=== PATIENT | female | born 1975 | race Caucasian/White ===

== ENCOUNTER 2024-01-03 10:30 | Outpatient (CLI) | payer SELFPAY | END 2024-01-03 10:31 | disposition home or self-care (01) | PROVIDERS: PCP Family Medicine; Visit Provider Family Medicine | DX: Z01.818 Encounter for other preprocedural examination (principal); C43.72 Malignant melanoma of left lower limb, including hip | CPT/HCPCS: 80048; 80076; 84443; 85025 ==

== ENCOUNTER 2024-01-10 06:30 | Day surgery (SDC) | payer SELFPAY ==
[2024-01-10] VITALS (53 sets, daily range): BP systolic 69–112; BP diastolic 43–91; PULSE 48–118; RESP 12–20; TEMP 36.3–36.6; O2SAT 92–100; BMI 16.0
--- OUTSIDE RECORDS SUMMARY | 2024-01-10 06:33 | XMS_ITS | Clinical Summary ---
Author Organization [employer] [facility] [employer] Address [place], [place] [address] Care Team Providers Care Director Digital Catalogue Name Role Phone Hadley James MD Primary Care Provider + Allergies Active Allergy Reactions Criticality Noted Date Comments Blood-Group Specific Substance Other - Describe In Comment Field 03/27/2013 Patient has a probable Passive Anti-D. Blood product orders may be delayed. Draw 2 purple and 1 red top tubes for all Type/Screen/Crossmat ch orders. Medications Medication Sig Dispensed Refills Start Date End Date Status sertraline (ZOLOFT) 100 mg tabletIndications:Sev ere episode of recurrent major depressive disorder, without psychotic features (HC) Take 2 tablets by mouth once daily. 60 tablet 09/05/2017 Active buPROPion (WELLBUTRIN XL) 300 mg Extended-Release tabletIndications:Sev ere episode of recurrent major depressive disorder, without psychotic features (HC) TAKE 1 TABLET BY MOUTH ONCE DAILY 30 tablet 09/05/2017 Active Active Problems Problem Noted Date Diagnosed Date Anorexia nervosa 06/22/2006 Major depressive disorder, recurrent episode, mo derate 06/22/2006 Overview (09/20/2018): patient continues to follow with Dr. James in [place]. Tayler Lange is not managing the medications. Cervical Dysplasia 06/22/2006 Resolved Problems Problem Noted Date Diagnosed Date Resolved Date Spontaneous vaginal delivery 09/05/2013 10/07/2014 Supervision of other normal 01/26/2013 10/07/2014 Overview (07/03/2013): Planned Smoker Depression and Anxiety well controlled with Wellbutrin and Zoloft. Having a Girl - Kaelyn Mesa Encounters Date Type Department Care Team Description 12/04/[address] [place] [address] Hadley James MD Results (Provider FYI) 11/28/2023 Lab Requisition [facility] [phone] Hadley James MD from Last 3 Months Immunizations Name Administration Dates Next Due Td (Age >=7 Years) 12/29/2002 Tdap 07/25/2012 Tuberculin (PPD) 02/15/2007 Family History Medical History Relation Name Comments Blood Disease Maternal Grandfather Leukem ia Thyroid Disease Mother Relation Name Status Comments Maternal Grandfather Mother Social History Tobacco Use Types Packs/Day Years Used Date Smoking Tobacco: Every Day Cigarettes 0.5 7 Smokeless Tobacco: Never Tobacco Cessation:Ready to Q uit: No Alcohol Use Standard Drinks/Week Comments Yes 0 (1 standard drink = 0.6 oz pur e alcohol) Social PHQ-2 Answer Date Recorded PHQ-2 Score 4 05/13/2018 Sex and Gender Information Value Date Recorded Sex Assigned at Not on file Gender Identity Not on file Sexual Orientation Not on file Obstetrics History Para Term AB IAB SAB Ectopic Multiple Livin g Live Births 5 3 3 0 0 0 0 0 3 3 Date Outcome GA Total Labor Labor/2nd/3rd Weight Sex Type Anes PTL Cecelia A1 A5 Name Clin Term Term 2000 39w 0d 2.81 kg (6 lb 3 oz) F Vag Livin g Angie a Delivery Location:[place] 2002 40w 0d 3.6 kg (7 lb 15 oz) M Vag IV Meds Livin g 9 9 Goyo [facility] re Delivery Location:[facility] 2013 Term 39w 5d 3.2 kg (7 lb 1 oz) F Vag Livin g 9 9 PATE ,BG(AN JOSE) Delivery Location:[facility] Last Filed Vital Signs Vital Sign Reading Time Taken Comments Blood Pressure 142/100 06/15/2017 11:10 AM CDT Pulse 78 06/15/2017 11:10 AM CDT Temperature 36.8 ??C (98.2 ??F) 09/06/2013 7:45 AM CD T Respiratory Rate 18 09/06/2013 7:45 AM CDT Oxygen Saturation 97% 09/05/2013 6:45 AM CDT Inhaled Oxygen Concentration - - Weight 59.4 kg (131 lb) 06/15/2017 11:10 AM CDT Height 182.9 cm (6') 06/15/2017 11:10 AM CDT Body Mass Index 17.77 06/15/2017 11:10 AM CDT Plan of Treatment Health Maintenance Due Date Last Done Comments Pap test for age 21-65 10/07/2017 5, 03/26/2013, 03/21/2011, Additional history exists BMI (ht and wt on same day) for age 18+ 06/15/2018 06/15/2017 Depression screening for age 12+ 06/15/2018 06/15/2017 Colonoscopy through age 75 2020 Lipids for age 45-75 2020 Mammogram for age 45-75 2020 Tetanus booster 07/25/2022 07/25/2012, 12/29/2002 COVID-19 vaccine series ( season) 2023 Influenza for age 9-49 11/11/2023 Hepatitis C screening for age 18-79 Completed 06/01/2005 Tdap Completed 07/25/2012 HIV for age 15-65 Completed 03/26/2013 Pneumococcal series for age 6-64 Aged Out No longer eligible based on patient's age to complete this topic Procedures Procedure Name Priority Date/Time Associated Diagnosis Comments LAB TRACKING EVENT Routine 11/28/2023 10 :00 AM CDT PATH TISSUE EXAM Routine 11/28/2023 10:0 0 AM CDT MANAGER ICU THIN PREP PAP SCREEN IMAGED Routine 10/07/2014 11:00 AM CDT Screening for malignant neoplasm of the cervix ANTI HIV 1/2 Routine 03/26/2013 11:29 AM TICKET COUNTER Supervision of other normal ANTI HCV Timed 06/01/2005 4:25 PM TICKET COUNTER from Last 3 Months or Most Recently Relevant to Health Maintenance Results * LAB TRACKING EVENT (11/28/2023 10:00 AM CDT) Other (Other) Client Collect / Unknown 11/28/2023 10:00 AM CDT 11/28/2023 10:28 PM CDT Hadley James MD LAB BILL ONLY [facility] LABORAT[facility]-CENTRAL LABORATORY [address] [place] [address], [place] * PATH TISSUE EXAM (11/28/2023 10:00 AM CDT) Case Report Pathology Report ?Case: [id number] ? Authorizing Provider: ??Hadley James MD ??Collected: ? 11/28/2023 1000 ? Ordering Location: ? [facility] ?Received: ?11/29/2023 0952 ? Pathologist: ? Justine Gordon MD ? Specimens: ?? A) - Left Thigh ? B) - Left Thigh ? 12/04/2023 12:39 PM CDT [facility] EN[facility]AL LABORAT[facility] Final Diagnosis A) SKIN, LEFT THIGH, BIOPSY: 1. Malignant melanoma ?? a. Maximum depth of invasion: 1.5 mm ?? b. Ulceration: Not identified ?? c. Margins: Peripheral: Positive; Deep: Negative 2. See comment and staging parameters below B) SKIN, LEFT THIGH, BIOPSY: 1. Malignant melanoma ?? a. Maximum depth of invasion: At least 2.5 mm ?? b. Ulceration: Not identified ?? c. Margins: Peripheral: Positive; Deep: Positive 2. See comment and staging parameters below 12/04/2023 12:39 PM CDT [facility]- ENTRAL LABORATORY Comment A&B) Re-excision to obtain 2.0 cm negative margins and consideration of sentinel lymph node biopsy is recommended. Dr. Gordon has left a message with this result to for Hadley James MD on 12/04/2023. Dr. Sharita Faria and has reviewed this case and concurs with diagnosis. 12/04/2023 12:39 PM CDT [facility] Clinical Information Nevus left thigh raised on part and dark on other part. 12/04/2023 12:39 PM T [facility] ENTRAL LABORAT[facility] Gross Description A) Received in formalin, labeled with the patient's name and A, dark, is a 0.4 x 0.4 x 0.4 cm cylindrical portion of hammer skin predominantly covered by 0.3 x 0.3 cm brown macule extending to 1 skin edge. ??The margin is inked yellow, the tissue is bisected and entirely submitted in 1 cassette. B) Received in formalin, labeled with the patient's name and B, is a 0.4 x 0.4 x 0.2 cm reno, hammer mottled discoid portion of skin. ??The margin is inked green, the tissue is bisected and entirely submitted in 1 cassette. DPL 11/29/2023 12/04/2023 12:39 PM CDT [facility] LAB[facility] Microscopic Description The final diagnosis is based on microscopic examination of appropriate sections of all specimens. A) the presence of yellow ink is confirmed on tissue sections. B) the presence of green ink is confirmed on tissue sections. 12/04/2023 12:39 PM CDT [facility]-C ENTRNC LABORATORY SYNOPTIC REPORTING MELANOMA OF THE SKIN: Excision, Re-Excision MELANOMA OF THE SKIN: EXCISION, RE-EXCISION ??- A, B 8th Edition - Protocol posted: 01/19/2021 SPECIMEN ?? Procedure: ?Punch biopsies (x 2) ?? Specimen Laterality: ?Left TUMOR ?? Tumor Site: ?Skin of lower limb and hip: Thigh ?? Histologic Type: ?Superficial spreading melanoma (low-cumulative sun damage (CSD) melanoma) ?? Maximum Tumor (Breslow) Thickness (Millimeters): ?2.5 mm ?? Macroscopic Satellite Nodule(s): ?Not identified ?? Ulceration: ?Not identified ?? Anatomic (Hussein) Level: ?IV (Melanoma invades reticular dermis) ?? Mitotic Rate: ?2 mitoses per mm2 ?? Microsatellite(s) : ?Not identified ?? Lymphovascular Invasion: ?Not identified ?? Neurotropism: ?Not identified ?? Tumor-Infiltratin g Lymphocytes: ?Present, nonbrisk ?? Tumor Regression: ?Present, involving less than 75% of lesion ?? MARGINS: ? Margin Status for Invasive Melanoma: ?Invasive melanoma present at margin ? Margin(s) Involved by Invasive Melanoma: ?Peripheral ? Margin(s) Involved by Invasive Melanoma: ?Deep ? Margin Status for Melanoma in situ: ?Melanoma in situ present at margin ? Margin(s) Involved by Melanoma in Situ: ?Peripheral ?? REGIONAL LYMPH NODES: ? Regional Lymph Node Status: ?Not applicable (no regional lymph nodes submitted or found) ?? PATHOLOGIC STAGE CLASSIFICATION (pTNM, AJCC 8th Edition): ? pT Category: ?pT3a ? pN Category: ?pN not assigned (no nodes submitted or found) 12/04/2023 12:39 PM CDT [facility]AL LABORATORY Additional Information [facility] at [facility] - [address], [place] [address] 12/04/2023 12:39 PM CDT [facility] [employer] [facility]- ENTRAL LABORATORY Other (Left Thigh) 11/28/2023 10:00 AM CDT 11/29/2023 9:52 AM CDT Specimen (specimen) (Left Thigh) 11/28/2023 10:00 AM CDT 11/29/2023 9:52 AM CDT Hadley James MD PATHOLOGY/CYTOLO GY [facility] [employer] [facility] [address] [place] [address], * MANAGER ICU THIN PREP PAP SCREEN IMAGED (10/07/2014 11:00 AM CDT) MANAGER ICU CYTOLOGY See Anatomic Pathology case 10/12/2014 12:00 PM CDT [facility] [employer] [facility] TRAL LABORATORY Specimen (specimen) (Cervical/Vagina l) Non-Blood / Unknown 10/07/2014 11:00 AM CDT 10/07/2014 11:00 AM CDT Hadley James MD PATHOLOG[facility] [address] [place] [address], * ANTI HIV 1/2 (03/26/2013 11:29 AM TICKET COUNTER) ANTI HIV 1/2 Non-reacti ve [facility] Blood specimen (specimen) BLOOD SPECIMEN / Unknown 03/26/2013 11:29 AM TICKET COUNTER 03/26/2013 11:21 AM TICKET COUNTER Hadley James MD SEND OUTS [facility] LABORATORY INTERNAL ZIP [address] [place] [address] * ANTI HCV (06/01/2005 4:25 PM TICKET COUNTER) ANTI HCV Non-reactiv e [facility] 06/01/2005 4:25 PM TICKET COUNTER 06/02/2005 1:42 PM TICKET COUNTER Narrative [facility] - 06/07/2005 1:54 PM TICKET COUNTER Testing Performed By [place], [place] Hadley James MD SEND OUTS [facility] [address] [place] [address] from Last 3 Months or Most Recently Relevant to Health Maintenance Advance Directives * Full Code (Latest Code Status on File) Date Activated Date Inactivated Comments 09/05/2013 3:53 AM 09/06/2013 5:20 PM * Full Code Date Activated Date Inactivated Comments 08/29/2013 2:34 PM 08/29/2013 9:53 PM Care Teams Director Digital Catalogue Relationship Specialty Start Date End Date Hadley James MD [address] [place] [address] [phone] (work) PCP - General 03/06/06
[2024-01-10 07:08] LABS: Ur HCG Qualitative* Negative (Negative)
[2024-01-10] MEDS: SODIUM CHLORIDE 0.9 % (FLUSH) 10 ML SYRINGE IVF (07:48)
--- NOTE | 2024-01-10 10:09 | W.PM.H&PU ---
History & Physical Update History & Physical Update H&P Reviewed and patient assessed: No changes noted
[2024-01-10] MEDS: ISOSULFAN BLUE 5 ML VIAL INJECTION (10:42)
[2024-01-10] MEDS: BUPIVACAINE 0.25% 30 ML INJECTION (11:08)
[2024-01-10] MEDS: BACITRACIN OINTMENT BULK TUBE 1 APPLIC TOPICAL (12:29)
--- NOTE | 2024-01-10 13:06 | W.ANESCHARGE ---
Anesthesia Charges Start Date/Time Anesthesia Start Date: 01/10/24 Anesthesia Start Time: 10:22 Stop Date/Time Anesthesia Stop Date: 01/10/24 Anesthesia Stop Time: 12:52
[2024-01-10] MEDS: PHENYLEPHRINE 100 MCG/ML SYRINGE IVP ×7 (13:08→14:10)
--- NOTE | 2024-01-10 13:17 | W.ANESCHARGE ---
Anesthesia Charges Start Date/Time Anesthesia Start Date: 01/10/24 Anesthesia Start Time: 10:22 Stop Date/Time Anesthesia Stop Date: 01/10/24 Anesthesia Stop Time: 12:52
--- NOTE | 2024-01-10 13:18 | PM.EN ---
Chart Event Note Time Seen by Provider: 13:18 Date Seen: 01/10/24 Chart Event Note: approximately 5-10 minutes after lymphazurin injection, severe hypotension ensued that was unresponsive to pressors. ephedrine, phenylephrine, vasopressin, epi 10 mcg/ml, than epi 100mcg/ml. Assuming anaphylaxis, steroids given, litres of fluid. MDA present and surgeon aware. No bronchospasm. Waking patient up. Patient responding to stimulation, b/p stabilizing, surgeon wanting to quickly finish case if patient stable since it is [place]. Patient maintaining b/p without pressors and tolerating nitrous oxide and whiff of sevo. Extubated awake at end of case. Following commands and moving all extremities, talking. Sending to PAR to see if she remains hemodynamically stable and able to go to floor or needing to be transferred. [place]
--- NOTE | 2024-01-10 13:19 | SUR.PHASEI ---
vasopressin given per distribution center manager at [phone]
--- NOTE | 2024-01-10 13:19 | SUR.PHASEI ---
see anesthesia record for vasopressin
[2024-01-10 13:44] LABS: Basophils Percent Auto 0.1 % (0.0-3.0); Eosinophils Percent Auto 0.1 % (0.0-7.0); Hematocrit 41.9 % (33.0-51.0); Hemoglobin* 14.7 gm/dL (12.0-16.0); Immature Granulocytes Pct Auto 0.8 %; Lymphocytes Percent Auto 7.4 % (20-44); Mean Corpuscular HGB Conc 35 gm/dL (32-36); Mean Corpuscular Hemoglobin 34 pg (26-34); Mean Corpuscular Volume 98 fL (80-100); Monocytes Percent Auto 5.5 % (0.0-11.0); Neutrophils Percent Auto 86.1 % (42.0-72.0); Platelet Count* 182 K/uL (140-440); RDW Coefficient of Variation % 12.4 % (11.5-15.5); Red Blood Count 4.29 m/uL (4.00-5.20); White Blood Count* 21.66 K/uL (4.50-11.00)
[2024-01-10 13:57] LABS: Slide Review Reflex No
[2024-01-10 14:04] LABS: Chloride* 91 mmol/L (96-114); Potassium* 3.7 mmol/L (3.6-5.1); Sodium* 126 mmol/L (135-149)
[2024-01-10] MEDS: 0.9 % SODIUM CHLORIDE 500 ML 500 ML IV ×2 (14:04→15:13)
[2024-01-10 14:07] LABS: Anion Gap 4 mEq/L (7-15); Blood Urea Nitrogen* 11 mg/dL (5-24); Carbon Dioxide* 31 mmol/L (20-32); Creatinine* 0.8 mg/dL (0.5-1.5); Est. Creatinine Clearance* 72.67; Estimated Glomerular Filt Rate 91 ml/min; Glucose* 137 mg/dL (60-115)
[2024-01-10 14:08] LABS: Calcium* 8.5 mg/dL (8.4-10.6)
[2024-01-10 14:21] LABS: Troponin I* < 0.01 ng/mL (0.01-0.04)
--- NOTE | 2024-01-10 14:48 | P.GSOP_ITS ---
Operative Note Date of procedure: 01/10/24 Pre-op diagnosis: Left thigh malignant melanoma, 1.8 x 2.2 cm in diameter at least 2.5 mm in depth Post-op diagnosis: Same Type of Procedure: 1. Wide local excision left thigh malignant melanoma 2. Left femoral sentinel lymph node biopsy Indications: The patient is a 48-year-old female who presented to clinic with a large changing mole on her left thigh. This was biopsied and found to be malignant melanoma. The maximum depth was noted to be at least 2.5 mm. Given this finding I recommended wide excision with 2 cm margins as well as sentinel lymph node biopsy. We discussed that given the large area of excision that she may require a skin graft to close the wound. She agreed to proceed. Procedure Description: After discussing the risks and benefits of the procedure, the patient signed informed consent.? The operative site was marked and the patient was brought to the operating room and placed on the operating table in supine position.? Care was taken to pad the patient's pressure points.?? The patient was then intubated/given sedation by anesthesia.??Preoperatively lymphoscintigraphy was performed to identify and localize a sentinel lymph node in the left groin. This clinically corresponded to the left femoral region. I then injected 3 mL of Isosulfan blue dye within the dermis around the lesion. This was massaged for 3 minutes. The operative site was then prepped and draped in the usual sterile fashion.? A time-out was then performed. I began by bringing the probe into the field and was able to identify a signal just slightly above the marked area on the skin. A skin incision was then created and dissection was taken down through the subcutaneous tissue. A blue channel was noted in the subcutaneous. The femoral fascia was incised and a blue node was identified. This was dissected out carefully from the surrounding fat. The lymphatics were clipped. This had a strong signal ex vivo of 1500. The probe was placed back into the wound. There was still a signal noted that was greater than 10%. I followed a blue lymphatic channel was able to identify an additional node. This had a signal with the probe. This node appeared to either be 2 nodes close together or a bilobed node. This was removed. It was measured ex vivo and had a strong signal. The probe was then placed into the wound there were no further nodes noted. At this time, anesthesia had noted the patient's blood pressure was very low. It was not responding to vasopressors. The patient did not have high airway pressures. Oxygen saturations were 100% the patient was not noted to be tachycardic. She was treated for presumptive anaphylaxis from the Isosulfan dye as the timing of the hypotension was within 10 minutes of injection. The patient was not noted to have a rash and was not noted to have any edema. I examined the wound and not finding any further blue nodes the wound was quickly closed while Anesthesia administered epinephrine and steroids. Please see their documentation for details. The patient's blood pres sure began responding to small doses of epinephrine, however would drop subsequently. The decision was made to awaken the patient and abort the operation given her hemodynamic instability. The anesthesia was lightened and she began moving and responding appropriately. Her blood pressure at this time was improved to the 130s systolic. Because at this point she appeared to be stable, after discussion I elected to proceed with the wide local excision, as I had been able to examine the lesion and did feel that I could close the wound primarily. I quickly injected local anesthetic into the skin and subcutaneous tissue around the lesion. I marked out a 2 cm margin around the lesion. A scalpel was then used to create the skin incision. Cautery was used to take this dissection down to fascia. The specimen was removed from the fascia and marked with a stitch at the 12 o'clock or superior aspect. This was sent to pathology. Patient remained stable during this time. We then began our skin closure. First I created skin flaps medially and laterally for 4 cm on each side. Once this was done, using 2 0 Vicryl suture I placed interrupted dermal stitches to pull the midportion of the wound together. This came together without significant tension. Once the midportion of the wound was closed I then marked out and excised the superior and inferior aspect of the incision, the dog ears.' these were each sent as additional margin. The superior margin was marked with a stitch at the 12 o'clock location. The inferior margin was marked with a stitch at the 6 o'clock location. The remainder of the wound was closed with 2-0 Vicryl dermal stitches. The superior and inferior aspects of the wound were closed with 4-0 Monocryl running subcuticular fashion. The midportion of the wound which was under the most tension was closed with interrupted 3-0 nylon vertical mattress sutures. Glue was applied over the portions of the wound and the groin wound that were closed with 4-0 Monocryl. Bacitracin and Xeroform were applied over the midportion of the wound that was closed with nylon suture. Gauze and an Jeronimo wrap were then applied. The patient was able to be extubated and was transferred to the PACU. Findings: 1. 2 femoral sentinel lymph nodes identified Anesthesia: GETA Surgeon: Nuvia Natarajan MD Estimated blood loss (mL): 10 Additional Specimen Information: 1. Left femoral sentinel lymph nodes 2. Left thigh malignant melanoma, suture superior or at 12 o'clock 3. Left thigh melanoma additional superior margin, suture at 12 o'clock 4. Left thigh melanoma additional inferior margin, suture at 6 o'clock Condition: other (Patient remained hypotensive, however was not tachycardic, had oxygen saturations of 100% and was following commands upon transfer from the OR) Disposition: PACU Primary Cutaneous Melanoma Operation Performed with Curative Intent: Yes Original Breslow thickness of the lesion: Depth in mm 2.5 Clinical margin width (measured from the edge of the lesion or the prior excision scar): 2 cm Depth of Excision: Full thickness skin/subcutaneous tissue down to fascia (melanoma)
--- NOTE | 2024-01-10 15:36 | PM.EN ---
Chart Event Note Chart Event Note: The patient is a 48-year-old female who underwent excision of a left thigh malignant melanoma with left femoral sentinel lymph node biopsy. She developed refractory hypotension intraoperatively. This coincided within 10 minutes of injection of Isosulfan blue dye. It is thought that she sustained anaphylactic reaction to this. She had no evidence of broncho constriction, edema, or urticaria or other. She was given epinephrine and steroids with improvement of her blood pressure. Please see anesthesia note for details. She was extubated without incident, however she remained hypotensive in the recovery room, with systolic blood pressures in the 60s to 70s and mean arterial pressure in the 50s, requiring small doses of pressors to keep her map above 50. Labs were obtained which showed hemoglobin of 21, consistent with recent steroid burst. Sodium was low at 126. Patient does have a baseline low sodium of 131. Troponin was undetectable. A tryptase level was sent to aid in diagnosis. It was recommended that the patient remain overnight for observation and management of her hypotension. The patient adamantly refused and wished to go home. I did not feel that she was making appropriate medical decisions for herself given that she had received general anesthesia and was also hypotensive. She stated that she was going to leave. Her parents stated that they would not take her home. The patient is worried about the bill since she does not have medical insurance. I told her that I did not think she was competent to make her own medical decisions and I would not discharge her even against medical advice. I recommended that she remain in the hospital overnight. After multiple conversations, the patient remaining adamant that she is going to leave the hospital and will call a cab to take her home (I explained that a cab would not take her home from the hospital unaccompanied), she reluctantly was amenable to ongoing recovery a on the medical-surgical unit. She understands that she must remain off of pressors, keep her blood pressure with a mean arterial pressure over 60, have a normal heart rate and be able to ambulate without difficulty for she will be able to discharge home. It is my medical opinion that she should remain overnight for observation, however she is able to meet these criteria within the next few hours then she could be discharged home. She will be staying with her parents. I explained that if she discharges home at her current state she is at risk of cardiac event, dizziness, fall and even . At the time of this note in our final conversation when she agreed to be observed on the medical unit, her blood pressure had been sustained with a map over 60 for an hour without needing additional pressor medication.
--- NOTE | 2024-01-10 15:58 | SUR.PHASEI ---
patient v/s stable enough for pacu discharge. Patient adamant about leaving home from PACU, surgeon, hospitalist, rn, parents conversing with patient throughout stay to transfer to [facility], patient agreed.
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
--- NOTE | 2024-01-10 16:33 | PC.NURSE ---
Clarified prescription with rBenda Beckman prescription is for 1 tablet every 6 hours as needed for pain. Not 1-2 tablets. Patient's discharge instructions reflect this information and relayed to [facility] pharmacy ([facility]).
--- NOTE | 2024-01-10 17:16 | PC.NURSE ---
shift note: pt ambulated in shah with staff/GB 200ft. pt vss after ambulation 88/68 (72) p=86. pt denies dizziness and gait steady. IV dc'd intact. Drsg to Rt thigh c/d/i with bruising around te wrap. PP + bilat. pt denies pain. Reviewed dc instructions and copies sent with pt at dc. Belongings reviewed and sent with pt at dc.
--- NOTE | 2024-01-11 13:42 | P.EN_ITS ---
Chart Event Note Chart Event Note: I called Monica this afternoon to check in. She states that she did well overnight. She has had no dizziness and no pain from her incision. She is feeling fine. I again discussed with her the events of yesterday and explained that we think she may have had an anaphylactic reaction to possibly the Is osulfan blue dye or an anesthetic agent. We will pursue allergy testing in the future. She will follow up if she has any questions or concerns otherwise she will follow-up with me routinely next week.
== END 2024-01-10 17:05 | disposition home or self-care (01) ==
LOC: OR 13:46 → MEDSURG 15:40
PROVIDERS: PCP Family Medicine; Visit Provider Surgery
PROC: (CPT 11606; principal; 2024-01-10 10:45)
PROC: (CPT 11606; 2024-01-10 10:45)
DX: C43.72 Malignant melanoma of left lower limb, including hip (principal); I95.89 Other hypotension; T88.6XXA Anaphylactic reaction due to adverse effect of correct drug or medicament properly administered, initial encounter; Y92.234 Operating room of hospital as the place of occurrence of the external cause; F17.290 Nicotine dependence, other tobacco product, uncomplicated; Z59.19 Other inadequate housing; F33.9 Major depressive disorder, recurrent, unspecified; F10.10 Alcohol abuse, uncomplicated; F15.11 Other stimulant abuse, in remission; F43.10 Post-traumatic stress disorder, unspecified; F41.1 Generalized anxiety disorder
CPT/HCPCS: 11606; 17999; 38531; 01250; 36415; 80048; 81025; 83520; 84484; 85025; 88305; 88307; 88342; J0171; J0665; J1100; J2250; J2371; J2405; J2704; J2919; J3010; J3490; J7030

== ENCOUNTER 2024-01-10 08:11 | Outpatient (CLI) | payer SELFPAY ==
--- NOTE | 2024-01-10 08:00 | CRLHL7_ITS ---
For Patients: As a result of the Century Cures Act, medical imaging exams and procedure reports are released immediately into your electronic medical record. You may view this report before your referring provider. If you have questions, please contact your health care provider. INDICATION: 48-year-old female with a melanoma of the left upper anterior thigh presenting for sentinel lymph node evaluation prior to surgery. TECHNIQUE: Leland lymph node study of the left groin performed after the intravenous injection of 0.55 mCi of technetium-99m filtered sulfur colloid intradermally/subdermally about the site of melanoma in the left upper anterior thigh. FINDINGS: [place] protocol and time-out procedure performed. Risks, benefits, and alternatives of the procedure including but not limited to the risk of bleeding, infection, and injury to surrounding organs were explained in detail to the patient instructed to proceed. Using sterile technique and local anesthesia, a 0.55 mCi dose of technetium-99m filtered sulfur colloid injected just beneath the skin surface about the left upper anterior thigh melanoma. No complications. Post procedural imaging demonstrates uptake within multiple left inguinal lymph nodes extending along the left iliac chain. The 1st left inguinal lymph node was marked on the skin surface. IMPRESSION: Leland node localization procedure of a left inguinal lymph node. Dictated by Hadley Choi MD @ 01/10/2024 10:59:21 AM (Electronically Signed)
--- OUTSIDE RECORDS SUMMARY | 2024-01-10 08:12 | XMS_ITS | Clinical Summary ---
Author Organization [employer] [facility] [employer] [facility] Address [place], [place] [address] Care Team Providers Care Public Utilities Sales Representative Name Role Phone Hadley James MD Primary [...] continues to follow with Dr. James in [place]. Tayler Lange is not managing the medications. Cervical Dysplasia 06/22/2006 Resolved Problems Problem Noted Date Diagnosed Date Resolved Date Spontaneous vaginal delivery 09/05/2013 10/07/2014 Supervision of other normal 01/26/2013 10/07/2014 Overview (07/03/2013): Planned Smoker Depression and Anxiety well controlled with Wellbutrin and Zoloft. Having a Girl - Kaelyn Mesa Encounters Date Type Department Care Team Description 12/04/[address] [place] [address] Hadley James MD Results (Provider FYI) 11/28/2023 Lab Requisition [facility] CENTRAL LAB [phone] Hadley James MD from Last 3 Months [...] F Vag Livin g Angie a Delivery Location:[place] 2002 40w 0d 3.6 kg (7 lb 15 oz) M Vag IV Meds Livin g 9 9 Goyo [facility] re Delivery Location:[facility] 2013 Term 39w 5d 3.2 kg (7 lb 1 oz) F Vag Livin g 9 9 PATE ,BG(AN JOSE) Delivery Location:[facility] Last Filed Vital Signs Vital Sign Reading [...] EXAM Routine 11/28/2023 10:0 0 AM CDT CLINICAL INSTRUCTOR THIN PREP PAP SCREEN IMAGED Routine 10/07/2014 11:00 AM CDT Screening for malignant neoplasm of the cervix ANTI HIV 1/2 Routine 03/26/2013 11:29 AM BAND HEAD SAW OPERATOR Supervision of other normal ANTI HCV Timed 06/01/2005 4:25 PM BAND HEAD SAW OPERATOR from Last 3 Months or Most Recently Relevant to Health Maintenance Results * LAB TRACKING EVENT (11/28/2023 10:00 AM CDT) Other (Other) Client Collect / Unknown 11/28/2023 10:00 AM CDT 11/28/2023 10:28 PM CDT Hadley James MD LAB BILL ONLY [facility] LABORATORY-CENTRAL LABORATORY [address] [place] [address], [place] * PATH TISSUE EXAM (11/28/2023 10:00 AM CDT) Case Report Pathology Report ?Case: [id number] ? Authorizing Provider: ??Hadley James MD ??Collected: ? 11/28/2023 1000 ? Ordering Location: ? [facility] ?Received: ?11/29/2023 0952 ? Pathologist: ? Justine Gordon MD ? Specimens: ?? A) - Left Thigh ? B) - Left Thigh ? 12/04/2023 12:39 PM CDT [facility] ENTR[facility] LABORATORY Final Diagnosis A) SKIN, LEFT [...] staging parameters below 12/04/2023 12:39 PM CDT [facility] ENTRAL LABORATORY Comment A&B) Re-excision to obtain 2.0 cm negative margins and consideration of sentinel lymph node biopsy is recommended. Dr. Gordon has left a message with this result to for Hadley James MD on 12/04/2023. Dr. Sharita Faria and has reviewed this case and concurs with diagnosis. 12/04/2023 12:39 PM CDT [facility] Clinical Information Nevus left thigh raised on part and dark on other part. 12/04/2023 12:39 PM T [facility] ENTRAL LABORATORY Gross Description A) Received in [...] cassette. DPL 11/29/2023 12/04/2023 12:39 PM CDT [facility] ENTRAL LABORATORY Microscopic Description The final diagnosis is based on microscopic examination of appropriate sections of all specimens. A) the presence of yellow ink is confirmed on tissue sections. B) the presence of green ink is confirmed on tissue sections. 12/04/2023 12:39 PM CDT [facility]-C ENTRIL LABORATORY SYNOPTIC REPORTING MELANOMA OF THE SKIN: [...] submitted or found) 12/04/2023 12:39 PM CDT [facility]AL LABORATORY Additional Information Interpreted at [facility] - [address], [place] [address] 12/04/2023 12:39 PM CDT [facility] [employer] [facility]- ENTRAL LABORATORY Other (Left Thigh) 11/28/2023 10:00 AM CDT 11/29/2023 9:52 AM CDT Specimen (specimen) (Left Thigh) 11/28/2023 10:00 AM CDT 11/29/2023 9:52 AM CDT Hadley James MD PATHOLOGY/CYTOLO GY [facility] [employer] [facility] [address] [place] [address], * CLINICAL INSTRUCTOR THIN PREP PAP SCREEN IMAGED (10/07/2014 11:00 AM CDT) CLINICAL INSTRUCTOR CYTOLOGY See Anatomic Pathology case 10/12/2014 12:00 PM CDT [facility] [employer] [facility] Specimen (specimen) (Cervical/Vagina l) Non-Blood / Unknown 10/07/2014 11:00 AM CDT 10/07/2014 11:00 AM CDT Hadley James MD PATHOLOGY/[facility]O GY [facility] [address] [place] [address], * ANTI HIV 1/2 (03/26/2013 11:29 AM BAND HEAD SAW OPERATOR) ANTI HIV 1/2 Non-reacti ve [facility] Blood specimen (specimen) BLOOD SPECIMEN / Unknown 03/26/2013 11:29 AM BAND HEAD SAW OPERATOR 03/26/2013 11:21 AM BAND HEAD SAW OPERATOR Hadley James MD SEND OUTS [facility] LABORATORY INTERNAL ZIP [address] [place] [address] * ANTI HCV (06/01/2005 4:25 PM BAND HEAD SAW OPERATOR) ANTI HCV Non-reactiv e [facility] 06/01/2005 4:25 PM BAND HEAD SAW OPERATOR 06/02/2005 1:42 PM BAND HEAD SAW OPERATOR Narrative [facility] - 06/07/2005 1:54 PM BAND HEAD SAW OPERATOR Testing Performed By [place], [place] Hadley James MD SEND OUTS [facility] [address] [place] [address] from Last 3 Months or Most Recently Relevant to Health Maintenance Advance Directives * Full Code (Latest Code Status on File) Date Activated Date Inactivated Comments 09/05/2013 3:53 AM 09/06/2013 5:20 PM * Full Code Date Activated Date Inactivated Comments 08/29/2013 2:34 PM 08/29/2013 9:53 PM Care Teams Public Utilities Sales Representative Relationship Specialty Start Date End Date Hadley James MD [address] [place] [address] [phone] (work) PCP - General 03/06/06
== END 2024-01-10 08:12 | disposition home or self-care (01) ==
LOC: NM 08:11
PROVIDERS: PCP Family Medicine; Visit Provider Surgery
DX: C43.9 Malignant melanoma of skin, unspecified (principal)
CPT/HCPCS: 78195; A9541

== ENCOUNTER 2024-01-24 14:29 | Outpatient (CLI) | payer SELFPAY ==
--- OUTSIDE RECORDS SUMMARY | 2024-01-24 14:32 | XMS_ITS | Clinical Summary ---
Author Organization [employer] [facility] [employer] [facility] Address [place], [place] [address] Care Team Providers Care Casing Machine Operator Name Role Phone Hadley James MD Primary [...] continues to follow with Dr. James in [place]. Tayler Lange is not managing the medications. Cervical Dysplasia 06/22/2006 Resolved Problems Problem Noted Date Diagnosed Date Resolved Date Spontaneous vaginal delivery 09/05/2013 10/07/2014 Supervision of other normal 01/26/2013 10/07/2014 Overview (07/03/2013): Planned Smoker Depression and Anxiety well controlled with Wellbutrin and Zoloft. Having a Girl - aKelyn Mesa Encounters Date Type Department Care Team Description 01/11/2024 Lab Requisition [facility] [phone] Nuvia Natarajan MD 12/04/[address] [id number] Hadley James MD Results (Provider FYI) 11/28/2023 Lab Requisition [facility] [phone] Hadley James MD from Last 3 Months [...] F Vag Livin g Angie a Delivery Location:[place] 2002 40w 0d 3.6 kg (7 lb 15 oz) M Vag IV Meds Livin g 9 9 Goyo McInty re Delivery Location:[facility] 2013 Term 39w 5d 3.2 kg (7 lb 1 oz) F Vag Livin g 9 9 PATE ,BG(AN JOSE) Delivery Location:[facility] Last Filed Vital Signs Vital [...] Associated Diagnosis Comments LAB TRACKING EVENT Routine 01/10/2024 11 :27 AM CDT PATH TISSUE EXAM Routine 01/10/2024 11:2 7 AM CDT LAB TRACKING EVENT Routine 11/28/2023 10 :00 AM CDT PATH TISSUE EXAM Routine 11/28/2023 10:0 0 AM CDT KEY ACCOUNT EXECUTIVE THIN PREP PAP SCREEN IMAGED Routine 10/07/2014 11:00 AM CDT Screening for malignant neoplasm of the cervix ANTI HIV 1/2 Routine 03/26/2013 11:29 AM WELLNESS NURSE RN Supervision of other normal ANTI HCV Timed 06/01/2005 4:25 PM WELLNESS NURSE RN from Last 3 Months or Most Recently Relevant to Health Maintenance Results * LAB TRACKING EVENT (01/10/2024 11:27 AM CDT) Only the most recent of2 resultswithin the time period is included. Other (Other) Client Collect / Unknown 01/10/2024 11:27 AM CDT 01/11/2024 6:13 AM CDT Nuvia Natarajan MD LAB [facility] [address] [place] [address], * PATH TISSUE EXAM (01/10/2024 11:27 AM CDT) Only the most recent of2 resultswithin the time period is included. Case Report Pathology Report ?Case: [id number] ? Authorizing Provider: ??Nuvia Natarajan MD ??Collected: ? 01/10/2024 1127 ? Ordering Location: ? [facility] ?Received: ?01/11/2024 0830 ? Pathologist: ? Debbi Rosario, ? MD ? Specimens: ?? A) - Left Femoral, left femoral sentinel lymph nodes ? B) - Left Thigh, stitch 12'o clock superior ? C) - Left Thigh, additional superior margin stitch 12 o'clock ? D) - Left Thigh, additional inferior margin, stitch 6 o'clock ? 4 4:22 PM WELLNESS NURSE RN [facility]- [facility] Final Diagnosis A) SENTINEL LYMPH NODES, LEFT FEMORAL, EXCISION: 1. Negative for metastatic malignancy in three lymph nodes (0/3) B) SKIN, LEFT THIGH, RE-EXCISION: 1. Residual malignant melanoma ?? a. Maximum depth of invasion: 6 mm ?? b. Margins: Peripheral: Negative; Deep: Negative 2. Biopsy site change consistent with prior procedure 3. See updated staging parameters below C) SKIN, LEFT THIGH, ADDITIONAL SUPERIOR MARGIN, EXCISION: 1. Fragment of benign skin 2. Negative for malignancy D) SKIN, LEFT THIGH, ADDITIONAL INFERIOR MARGIN, EXCISION: 1. Fragment of benign skin 2. Negative for malignancy 4 4:22 PM [facility]- [facility] Clinical Information Malignant melanoma on left thigh ([id number]). 4 4:22 PM [facility] Gross Description A) Received in formalin, labeled with the patient's name and left femoral sentinel lymph nodes, are 3 hammer-pink partially blue dyed lymph nodes (ranging from 1.1 x 0.7 x 0.6 cm to 2.3 x 0.7 x 0.5 cm), sectioned to reveal pink-hammer focally hyperemic and blue dyed cut surfaces. The lymph nodes are submitted entirely as follows: 1. One bisected lymph node 2. One trisected lymph node 3. One trisected lymph node B) Received fresh labeled with the patient's name and left thigh melanoma, stitch 12:00/superior, is a 5.4 x 5.3 cm circular skin excision excised to maximum depth is 1.2 cm, oriented with a suture at the designated 12:00/superior position. ??The specimen is inked as follows: 12 o'clock to 3 o'clock: Blue 3 o'clock to 6 o'clock: Green 6 o'clock to 9 o'clock: Red 9 o'clock to 12 o'clock: Yellow Epithelial surface is hammer and smooth with a 2.2 x 1.6 cm irregular brown macule partially occupied by a 1.0 x 0.7 cm hammer-pink pearly papule. ??The lesion measures to the peripheral margins as follows: 12:00 = 1.8 cm 3:00 = 1.5 cm 6:00 = 2.0 cm 9:00 = 1.8 cm Sectioning reveals hammer-yellow fatty blue dyed cut surfaces. ??The identified lesion is 1.1 cm from the nearest deep margin. ??No additional lesions or abnormalities are identified. The specimen is entirely submitted as follows: 1-3. ?? 12:00 margin, perpendicular (orange ink for embedding purposes) 4-9. ?? Uninvolved tissue, sequentially from 12:00 to lesion (paired sections in cassettes 4-5, 6-7, 8-9) 10-19. Lesion, entirely and sequentially from 12:00 to 6:00 (paired sections in cassettes 10-11, 12-13, 14-15, 16-17, 18-19) 20-25. Uninvolved tissue, sequentially from lesion to 6:00 (paired sections in cassettes 20-21, 22-23, 24-25) 26-28. 6:00 margin, perpendicular (orange ink for embedding purposes) An annotated photograph has been uploaded to the case. C) Received fresh labeled with the patient's name and left thigh melanoma additional superior margin, stitch 12:00, is a 4.0 x 2.5 cm triangular skin excision excised to maximum depth of 0.6 cm, oriented with a suture at the designated 12:00 tip. ??The specimen is inked as follows (see photo): 12:00 to 3:00 (including deep) = blue 9:00 to 12:00 (including deep) = yellow Presumed non-true margin = orange The epithelial surface is hammer and smooth with no distinct lesions or abnormalities. ??The specimen is sequentially sectioned from 3:00 to 9:00, to reveal yellow fatty unremarkable cut surfaces. The specimen is entirely submitted as follows: 1. ?? 12:00 tip 2. ?? 3:00 tip 3. ?? 9:00 tip 4-8. Sequential cross-sections from 3:00 to 9:00 An annotated photograph has been uploaded to the case. D) Received fresh labeled with the patient's name and left thigh melanoma additional inferior margin, stitch 6:00, is a 3.5 x 2.0 cm triangular skin excision excised to a maximum depth 0.8 cm, oriented with a suture at the designated 6:00 tip. ??The specimen is inked as follows (see photo): 3:00 to 6:00 (including deep) = green 6:00 to 9:00 (including deep) = red Presumed non-true margin = orange The epithelial surface is hammer and smooth with no distinct lesions or abnormalities. ??The specimen is sequentially sectioned from 3:00 to 9:00 to reveal fatty unremarkable cut surfaces. The specimen is entirely submitted as follows: 1. ?? 3:00 tip 2. ?? 6:00 tip 3. ?? 9:00 tip 4-8. Sequential cross-sections from 3:00 to 9:00 An annotated photograph has been uploaded to the case. ROBBY 01/11/2024 4 4:22 PM [facility] Microscopic Description The final diagnosis is based on microscopic examination of appropriate sections of all specimens. A) The evaluation of the sentinel node specimen including histologic evaluation of H&E levels and immunohistochemistry (using antibodies to Melan A) was performed. The IHC was performed on blocks A1-A3 and is negative. B) Sections reveal skin with central biopsy site change and residual melanoma. 4 4:22 PM [facility] SYNOPTIC REPORTING MELANOMA OF THE SKIN: Excision, Re-Excision MELANOMA OF THE SKIN: EXCISION, RE-EXCISION ??- All Specimens 8th Edition - Protocol posted: 01/19/2021 SPECIMEN ?? Procedure: ?Re-excision ?? Procedure: ?Rosalie node(s) biopsy ?? Specimen Laterality: ?Left TUMOR ?? Tumor Site: ?Skin of lower limb and hip: Thigh ?? Histologic Type: ?Superficial spreading melanoma (low-cumulative sun damage (CSD) melanoma) ?? Maximum Tumor (Breslow) Thickness (Millimeters): ?6 mm ?? Macroscopic Satellite Nodule(s): ?Not identified ?? Ulceration: ?Not identified ?? Anatomic (Hussein) Level: ?IV (Melanoma invades reticular dermis) ?? Mitotic Rate: ?2 mitoses per mm2 ?? Microsatellite(s): ?Not identified ?? Lymphovascular Invasion: ?Not identified ?? Neurotropism: ?Not identified ?? Tumor-Infiltrating Lymphocytes: ?Present, nonbrisk ?? Tumor Regression: ?Present, involving less than 75% of lesion ?? MARGINS: ? Margin Status for Invasive Melanoma: ?All margins negative for invasive melanoma ? Margin Status for Melanoma in situ: ?All margins negative for melanoma in situ ?? REGIONAL LYMPH NODES: ? Regional Lymph Node Status: ? : ?All regional lymph nodes negative for tumor ? Total Number of Lymph Nodes Examined: ?3 ? Number of Rosalie Nodes Examined: ?3 ?? PATHOLOGIC STAGE CLASSIFICATION (pTNM, AJCC 8th Edition): ? : ?Classification assigned in this report includes information from a prior procedure: [id number] ? pT Category: ?pT4a ? pN Category: ?pN0 4 4:22 PM WELLNESS NURSE RN [facility] Additional Information Interpreted at [facility] - [address], [place] [address] Immunohistochemistry controls were reviewed and approved by the pathologist during this examination. 4 4:22 PM WELLNESS NURSE RN [facility] Other (Left Femoral) 01/10/2024 11:27 AM CDT 01/11/2024 8:30 AM CDT Specimen (specimen) (Left Thigh) 01/10/2024 11:27 AM CDT 01/11/2024 8:30 AM CDT Specimen (specimen) (Left Thigh) 01/10/2024 11:27 AM CDT 01/11/2024 8:30 AM CDT Specimen (specimen) (Left Thigh) 01/10/2024 11:27 AM CDT 01/11/2024 8:30 AM CDT Nuvia Natarajan MD PATHOLOGY/CYTOLO GY [facility] [address] [place] [address], [place] * KEY ACCOUNT EXECUTIVE THIN PREP PAP SCREEN IMAGED (10/07/2014 11:00 AM CDT) KEY ACCOUNT EXECUTIVE CYTOLOGY See Anatomic Pathology case 10/12/2014 12:00 PM CDT [facility] Specimen (specimen) (Cervical/Vagina l) Non-Blood / Unknown 10/07/2014 11:00 AM CDT 10/07/2014 11:00 AM CDT Hadley James MD PATHOLOGY/CYTOLO GY [facility] [address] [place] [address], [place] * ANTI HIV 1/2 (03/26/2013 11:29 AM WELLNESS NURSE RN) ANTI HIV 1/2 Non-reacti ve [facility] Blood specimen (specimen) BLOOD SPECIMEN / Unknown 03/26/2013 11:29 AM WELLNESS NURSE RN 03/26/2013 11:21 AM WELLNESS NURSE RN Hadley James MD SEND OUTS [facility] [place]NAL ZIP [address] [place] [address] * ANTI HCV (06/01/2005 4:25 PM WELLNESS NURSE RN) ANTI HCV Non-reactiv e [facility] [place] 06/01/[place] 4:25 PM WELLNESS NURSE RN 06/02/2005 1:42 PM WELLNESS NURSE RN Narrative [facility] [place] 06/07/2005 1:54 PM WELLNESS NURSE RN Testing Performed By [place], [place] Hadley James MD SEND OUTS [facility] [place] [address] [place] [address] from Last 3 Months or Most Recently Relevant to Health Maintenance Advance Directives * Full Code (Latest Code Status on File) Date Activated Date Inactivated Comments 09/05/2013 3:53 AM 09/06/2013 5:20 PM * Full Code Date Activated Date Inactivated Comments 08/29/2013 2:34 PM 08/29/2013 9:53 PM Care Teams Casing Machine Operator Relationship Specialty Start Date End Date Hadley James MD [address] [place] [address] [facility] - General 03/06/06
== END 2024-01-24 14:30 | disposition home or self-care (01) ==
LOC: NFLDREF 14:30
PROVIDERS: PCP Family Medicine; Visit Provider Surgery
DX: E87.1 Hypo-osmolality and hyponatremia (principal)
CPT/HCPCS: 80048

== ENCOUNTER 2024-03-20 13:50 | Outpatient (CLI) | payer OTHER, SELFPAY ==
--- OUTSIDE RECORDS SUMMARY | 2024-03-13 14:49 | XMS_ITS | Clinical Summary ---
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 Blood product orders may be delayed. Draw 2 purple and 1 red top tubes for all Type/Screen/Crossmat ch orders. Medications sertraline (ZOLOFT) 100 mg tabletIndicatio ns:Severe episode of recurrent major depressive disorder, without psychotic features (HC) Take 2 tablets by mouth once daily. 60 tablet 09/05/2017 Active buPROPion (WELLBUTRIN XL) 300 mg Extended-Releas e tabletIndicatio ns:Severe episode of recurrent major depressive disorder, without psychotic features (HC) TAKE 1 TABLET BY MOUTH ONCE DAILY 30 tablet 09/05/2017 Active Active Problems Problem Noted Date Diagnosed Date Anorexia nervosa 06/22/2006 Major depressive disorder, recurrent episode, mo derate 06/22/2006 Overview (09/20/2018): patient continues to follow with Dr. James in [place]. Tayler Lange is not managing the medications. Cervical Dysplasia 06/22/2006 Resolved Problems Problem Noted Date Diagnosed Date Resolved Date Spontaneous vaginal delivery 09/05/2013 10/07/2014 Supervision of other normal 01/26/2013 10/07/2014 Overview (07/03/2013): Planned Smoker Depression and Anxiety well controlled with Wellbutrin and Zoloft. Having a Girl - Kaelyn Bonita Encounters Date Type Department Care Team Description 01/25/2024 Telephone [facility] [address] [place] [address] Agustin Gonzales MD Referral 01/24/2024 Orders Only [facility] Scanner 1 scan: (1-Ord) EKG, 01/24/2024 01/11/2024 Lab Requisition [facility] [phone] Nuvia Natarajan MD 01/10/2024 Orders Only [facility] Scanner 1 scan: (1-Ord) [facility], 01/10/2024 01/10/2024 Orders Only [facility] Scanner 1 scan: (1-Ord) [facility] RESULT, 01/10/2024 from Last 3 Months Immunizations Name Administration [...] Answer Date Recorded PHQ-2 Score 4 05/13/2018 Comments Unknown Sex and Gender Information Value Date Recorded Sex Assigned at Not on file Legal Sex Female 6:31 AM HOSPITALITY COORDINATOR Gender Identity Not on file Sexual Orientation Not on file 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 file Not on file Not on file Not on file Not on file Not on file Not on file Obstetrics History Para Term AB IAB SAB Ectopic Multiple Livin g Live Births 5 3 3 0 0 0 0 0 3 3 Date Outcome GA Total Labor Labor/2nd/3rd Weight Sex Type Anes PTL Cecelia A1 A5 Name Clin Term Term 2000 39w 0d 2.81 kg (6 lb 3 oz) F Vag Livin g Angie a Delivery Location:[place] 2002 40w 0d 3.6 kg (7 lb 15 oz) M Vag IV Meds Livin g 9 9 Goyo peña Delivery Location:[facility] 2013 Term 39w 5d 3.2 kg (7 lb 1 oz) F Vag Livin g 9 9 PATE ,BG(AN JOSE) Delivery Location:[facility] Last Filed Vital Signs Vital Sign Reading Time Taken Comments Blood Pressure 142/100 06/15/2017 11:10 AM CDT Pulse 78 06/15/2017 11:10 AM CDT Temperature 36.8 C (98.2 F) 09/06/2013 7:45 AM CDT Respiratory Rate 18 09/06/2013 7:45 AM CDT [...] booster 07/25/2022 07/25/2012, 12/29/2002 COVID-19 vaccine series (2023- season) 2023 Influenza for age 9-49 11/11/2023 Hepatitis C screening for age 18-79 Completed 06/01/2005 Tdap Completed 07/25/2012 HIV for age 15-65 Completed 03/26/2013 Pneumococcal series for age 6-49 Aged Out No longer eligible based on patient's age to complete this topic Procedures Procedure Name Priority Date/Time Associated Diagnosis Comments SCAN-ELECTROCARDIOG MANDY EKG 01/24/2024 12:00 AM HOSPITALITY COORDINATOR LAB TRACKING EVENT Routine 01/10/2024 11 :27 AM CDT PATH TISSUE EXAM Routine 01/10/2024 11:2 7 AM CDT SCAN-LABORATORY REPORT 01/10/2024 12:00 AM CDT SCAN-NUCLEAR MEDICINE 01/10/2024 12:00 AM CDT SET DESIGNER THIN PREP PAP SCREEN IMAGED Routine 10/07/2014 11:00 AM CDT Screening for malignant neoplasm of the cervix ANTI HIV 1/2 Routine 03/26/2013 11:29 AM HOSPITALITY COORDINATOR Supervision of other normal ANTI HCV Timed 06/01/2005 4:25 PM HOSPITALITY COORDINATOR from Last 3 Months or Most Recently Relevant to Health Maintenance Results * SCAN-ELECTROCARDIOGRAM EKG (01/24/2024 12:00 AM HOSPITALITY COORDINATOR) us Scanner OTHER Final Result * LAB TRACKING EVENT (01/10/2024 11:27 AM CDT) Other (Other) Client Collect / Unknown 01/10/2024 11:27 AM CDT 01/11/2024 6:13 AM CDT us Nuvia Natarajan MD LAB BILL ONLY Final Re sult [facility] [address] [place] [address], [place] * PATH TISSUE EXAM (01/10/2024 11:27 AM CDT) Case Report Pathology Report Case: [id number] Authorizing Provider: Nuvia Natarajan MD Collected: 01/10/2024 1127 Ordering Location: [facility] Received: 01/11/2024 0830 Pathologist: Debbi Rosario MD Specimens: A) - Left Femoral, left femoral sentinel lymph nodes B) - Left Thigh, stitch 12'o clock superior C) - Left Thigh, additional superior margin stitch 12 o'clock D) - Left Thigh, additional inferior margin, stitch 6 o'clock 4:22 PM [facility] Final Diagnosis A) SENTINEL LYMPH NODES, LEFT FEMORAL, EXCISION: 1. Negative for metastatic malignancy in three lymph nodes (0/3) B) SKIN, LEFT THIGH, RE-EXCISION: 1. Residual malignant melanoma a. Maximum depth of invasion: 6 mm b. Margins: Peripheral: Negative; Deep: Negative 2. Biopsy site change consistent with prior procedure 3. See updated staging parameters below C) SKIN, LEFT THIGH, ADDITIONAL SUPERIOR MARGIN, EXCISION: 1. Fragment of benign skin 2. Negative for malignancy D) SKIN, LEFT THIGH, ADDITIONAL INFERIOR MARGIN, EXCISION: 1. Fragment of benign skin 2. Negative for malignancy 4 4:22 PM [facility] Clinical Information Malignant melanoma on left thigh ([id number]). 4 4:22 PM [facility] Gross Description A) Received [...] a suture at the designated 12:00/superior position. The specimen is inked as follows: 12 o'clock to 3 o'clock: Blue 3 o'clock to 6 o'clock: Green 6 o'clock to 9 o'clock: Red 9 o'clock to 12 o'clock: Yellow Epithelial surface is hammer and smooth with a 2.2 x 1.6 cm irregular brown macule partially occupied by a 1.0 x 0.7 cm hammer-pink pearly papule. The lesion measures to the peripheral margins as follows: 12:00 = 1.8 cm 3:00 = 1.5 cm 6:00 = 2.0 cm 9:00 = 1.8 cm Sectioning reveals hammer-yellow fatty blue dyed cut surfaces. The identified lesion is 1.1 cm from the nearest deep margin. No additional lesions or abnormalities are identified. The specimen is entirely submitted as follows: 1-3. 12:00 margin, perpendicular (orange ink for embedding purposes) 4-9. Uninvolved tissue, sequentially from 12:00 to lesion [...] a suture at the designated 12:00 tip. The specimen is inked as follows (see photo): 12:00 to 3:00 (including deep) = blue 9:00 to 12:00 (including deep) = yellow Presumed non-true margin = orange The epithelial surface is hammer and smooth with no distinct lesions or abnormalities. The specimen is sequentially sectioned from 3:00 to 9:00, to reveal yellow fatty unremarkable cut surfaces. The specimen is entirely submitted as follows: 1. 12:00 tip 2. 3:00 tip 3. 9:00 tip 4-8. Sequential cross-sections from 3:00 to 9:00 An annotated photograph has been uploaded to the case. D) Received fresh labeled with the patient's name and left thigh melanoma additional inferior margin, stitch 6:00, is a 3.5 x 2.0 cm triangular skin excision excised to a maximum depth 0.8 cm, oriented with a suture at the designated 6:00 tip. The specimen is inked as follows (see photo): 3:00 to 6:00 (including deep) = green 6:00 to 9:00 (including deep) = red Presumed non-true margin = orange The epithelial surface is hammer and smooth with no distinct lesions or abnormalities. The specimen is sequentially sectioned from 3:00 to 9:00 to reveal fatty unremarkable cut surfaces. The specimen is entirely submitted as follows: 1. 3:00 tip 2. 6:00 tip 3. 9:00 tip 4-8. Sequential cross-sections from 3:00 to 9:00 An annotated photograph has been uploaded to the case. ADW 01/11/2024 4:22 PM [facility] Microscopic Description The final diagnosis is based on microscopic examination of appropriate sections of all specimens. A) The evaluation of the sentinel node specimen including histologic evaluation of H&E levels and immunohistochemistry (using antibodies to Melan A) was performed. The IHC was performed on blocks A1-A3 and is negative. B) Sections reveal skin with central biopsy site change and residual melanoma. 4:22 PM [facility] SYNOPTIC REPORTING MELANOMA OF THE SKIN: Excision, Re-Excision MELANOMA OF THE SKIN: EXCISION, RE-EXCISION - All Specimens 8th Edition - Protocol posted: 01/19/2021 SPECIMEN Procedure: Re-excision Procedure: Wynne node(s) biopsy Specimen Laterality: Left TUMOR Tumor Site: Skin of lower limb and hip: Thigh Histologic Type: Superficial spreading melanoma (low-cumulative sun damage (CSD) melanoma) Maximum Tumor (Breslow) Thickness (Millimeters): 6 mm Macroscopic Satellite Nodule(s): Not identified Ulceration: Not identified Anatomic (Hussein) Level: IV (Melanoma invades reticular dermis) Mitotic Rate: 2 mitoses per mm2 Microsatellite(s): Not identified Lymphovascular Invasion: Not identified Neurotropism: Not identified Tumor-Infiltrating Lymphocytes: Present, nonbrisk Tumor Regression: Present, involving less than 75% of lesion MARGINS: Margin Status for Invasive Melanoma: All margins negative for invasive melanoma Margin Status for Melanoma in situ: All margins negative for melanoma in situ REGIONAL LYMPH NODES: Regional Lymph Node Status: : All regional lymph nodes negative for tumor Total Number of Lymph Nodes Examined: 3 Number of Wynne Nodes Examined: 3 PATHOLOGIC STAGE CLASSIFICATION (pTNM, AJCC 8th Edition): : Classification assigned in this report includes information from a prior procedure: [id number] pT Category: pT4a pN Category: pN0 4:22 PM HOSPITALITY COORDINATOR [facility] Additional Information Interpreted at [facility] - [address], [place] [address] Immunohistochemistry controls were reviewed and approved by the pathologist during this examination. 4 4:22 PM HOSPITALITY COORDINATOR [facility] Other (Left Femoral) 01/10/2024 11:27 AM CDT 01/11/2024 8:30 AM CDT Specimen (specimen) (Left Thigh) 01/10/2024 11:27 AM CDT 01/11/2024 8:30 AM CDT Specimen (specimen) (Left Thigh) 01/10/2024 11:27 AM CDT 01/11/2024 8:30 AM CDT Specimen (specimen) (Left Thigh) 01/10/2024 11:27 AM CDT 01/11/2024 8:30 AM CDT us Nuvia Natarajan MD PATHOLOGY/CYTOLOGY Final Result Performing Organization Address City/[facility] Co de Phone Number [facility] [address] [place] [address], [place] * SCAN-LABORATORY REPORT (01/10/2024 12:00 AM CDT) us Scanner OTHER Final Result * SCAN-NUCLEAR MEDICINE (01/10/2024 12:00 AM CDT) Anatomical Region Laterality Modality Other us Scanner OTHER Final Result * SET DESIGNER THIN PREP PAP SCREEN IMAGED (10/07/2014 11:00 AM CDT) SET DESIGNER CYTOLOGY See Anatomic Pathology case 10/12/2014 12:00 PM CDT [facility] Specimen (specimen) (Cervical/Vagina l) Non-Blood / Unknown 10/07/2014 11:00 AM CDT 10/07/2014 11:00 AM CDT us Hadley James MD PATHOLOGY/CYTOLOGY Final Result [facility] [address] [place] [address], * ANTI HIV 1/2 (03/26/2013 11:29 AM HOSPITALITY COORDINATOR) ANTI HIV 1/2 Non-reacti ve [facility] Blood specimen (specimen) BLOOD SPECIMEN / Unknown 03/26/2013 11:29 AM HOSPITALITY COORDINATOR 03/26/2013 11:21 AM HOSPITALITY COORDINATOR us Hadley James MD SEND OUTS Final Re sult [facility] [place]NAL ZIP [id number] [place] [address] * ANTI HCV (06/01/2005 4:25 PM HOSPITALITY COORDINATOR) Pathologist [facility] ANTI HCV Non-reactiv e [facility] 06/01/2005 4:25 PM HOSPITALITY COORDINATOR 06/02/2005 1:42 PM HOSPITALITY COORDINATOR Narrative [facility] - 06/07/2005 1:54 PM HOSPITALITY COORDINATOR Testing Performed By [place], [place] us Hadley James MD SEND OUTS Final Re sult [facility] [address] [place] [address] from Last 3 Months or Most Recently Relevant to Health Maintenance Insurance [facility] [id number] [facility] [id number] [facility] [place] Directives * Full Code (Latest Code Status on File) Date Activated Date Inactivated Comments 09/05/2013 3:53 AM 09/06/2013 5:20 PM * Full Code Date Activated Date Inactivated Comments 08/29/2013 2:34 PM 08/29/2013 9:53 PM Care Teams Operating Room Specialist Relationship Specialty Start Date End Date Hadley James MD [address] [place] [address] PCP - General 03/06/06
--- OUTSIDE RECORDS SUMMARY | 2024-03-13 14:49 | XMS_ITS | Clinical Summary ---
Author Organization [facility] Address [address] [place] [address] Care Team Providers Care Supervisor Riprap Placing Name Role Phone Unavailable Primary Care Provider Unavailabl e Source Comments Patient records contain information from all sites at [facility]. For routine questions regarding patient records, call [phone] during business hours, M-F 8:00 AM - 5:00 PM Central Time. Record requests for emergency care only can be directed to [phone] at any time.[facility] Allergies Active Allergy Reactions Criticality Noted Date Comments Sertraline GI intolerance 03/07/2024 Medications amoxicillin-pot clavulanate (Augmentin) 875-125 mg per tabletIndication s:Pneumonia Take 1 tablet by mouth 2 (two) times a day for 5 days. 10 tablet 4 03/12/19 25 azithromycin (Zithromax) 250 mg tabletIndication s:Pneumonia Take 2 tablets (500 mg) on day 1 and then 1 tablet (250 mg) on days 2-5. 6 tablet 4 03/12/19 25 Active Problems Problem Noted Date Diagnosed Date Preplacement Exam Encounters Date Type Department Care Team Description 03/07/2024 3:12 PM DISTRIBUTED GENERATION PROJECT MANAGER - 03/07/2024 5:36 PM DISTRIBUTED GENERATION PROJECT MANAGER Emergency [facility] [address] [place] [id number] Brianna Doe, [place]C. Pneumonia (Primary Dx); Loss Weight Abnormal; Thrombocytopenia (HCC); Leukocytopenia Discharge Disposition: Home or Self Care from Last 3 Months Immunizations Name Administration Dates Next Due Td, (Adult) Unspecified 06/18/1990 Social History Tobacco Use Types Packs/Day Years Used Date Smoking Tobacco: Never Assessed Nutrition Answer Date Recorded Nutrition: EVOO Fat Source Unknown 05/11 Nutrition: Servings of Fruits/Vegetables per Day Not on file 05/11/2020 Dental Answer Date Recorded Dental: Regular Dentist Unknown 05/12/19 21 Comments No Sex and Gender Information Value Date Recorded Sex Assigned at Not on file Legal Sex Female 10:55 AM DISTRIBUTED GENERATION PROJECT MANAGER Gender Identity Not on file Sexual Orientation Not on file Last Filed Vital Signs Vital Sign Reading Time Taken Comments Blood Pressure 120/88 03/07/2024 5:15 PM DISTRIBUTED GENERATION PROJECT MANAGER Pulse 45 03/07/2024 5:00 PM DISTRIBUTED GENERATION PROJECT MANAGER Temperature 36.9 C (98.4 F) 03/07/2024 3:10 PM DISTRIBUTED GENERATION PROJECT MANAGER Respiratory Rate 11 03/07/2024 5:15 PM DISTRIBUTED GENERATION PROJECT MANAGER Oxygen Saturation 98% 03/07/2024 5:00 PM DISTRIBUTED GENERATION PROJECT MANAGER Inhaled Oxygen Concentration - - Weight 49.7 kg (109 lb 9.1 oz) 03/07/2024 3:10 P M DISTRIBUTED GENERATION PROJECT MANAGER Height - - Body Mass Index - - Plan of Treatment Health Maintenance Due Date Last Done Comments CT Colonography 1975 Cervical/Vaginal Cancer Screening 1975 Cologuard 1975 Colonoscopy 1975 Colorectal Cancer Screening 1975 FIT 1975 HIV Screening 1975 Hepatitis C Screening 1975 Lipid (Cholesterol) Screening 1975 Mammogram 1975 IPV Vaccines (2 of 3 - 4-dose series) 07/01/1980 06/03/1980 DTaP,Tdap,and Td Vaccines (5 - Td or Tdap) 07/25/2022 07/25/2012, 12/29/2002, 06/18/1990, Additional history exists Depression Screening (Annual PHQ-2) 03/12/2023 COVID-19 Vaccine ( - season) 2023 Influenza Vaccine (#1) 2023 01/14/2012 Fasting Glucose for Diabetes Screening 03/07/2027 03/07/2024 Hepatitis B Vaccines Completed 04/24/1996, 09/20/1995, 08/23/1995 Pneumococcal vaccine (0-49 years) Aged Out No longer eligible based on patient's age to complete this topic Procedures Procedure Name Priority Date/Time Associated Diagnosis Comments VBG (VENOUS BLOOD GAS), POCT, B STAT 03/07/2024 4:47 PM DISTRIBUTED GENERATION PROJECT MANAGER CT ABDOMEN PELVIS WITH IV CONTRAST RAD - Semiurgent (Fast; most ED patients; some inpatients) 03/07/2024 4:28 PM DISTRIBUTED GENERATION PROJECT MANAGER CT CHEST WITH IV CONTRAST RAD - Semiurgent (Fast; most ED patients; some inpatients) 03/07/2024 4:28 PM DISTRIBUTED GENERATION PROJECT MANAGER CT HEAD WITHOUT IV CONTRAST RAD - Semiurgent (Fast; most ED patients; some inpatients) 03/07/2024 3:56 PM DISTRIBUTED GENERATION PROJECT MANAGER ECG STAT 03/07/2024 3:06 PM DISTRIBUTED GENERATION PROJECT MANAGER DX CHEST AP OR PA AND LATERAL 2 VIEWS RAD - Semiurgent (Fast; most ED patients; some inpatients) 03/07/2024 2:34 PM DISTRIBUTED GENERATION PROJECT MANAGER MORPHOLOGY EVALUATION STAT 03/07/2024 2:05 PM DISTRIBUTED GENERATION PROJECT MANAGER D-DIMER, P STAT 03/07/2024 2:05 PM DISTRIBUTED GENERATION PROJECT MANAGER COMPREHENSIVE METABOLIC PANEL, S/P STAT 03/07/2024 2:05 PM DISTRIBUTED GENERATION PROJECT MANAGER CBC WITH DIFFERENTIAL, B STAT 03/07/2024 2:05 PM DISTRIBUTED GENERATION PROJECT MANAGER from Last 3 Months Results * (ABNORMAL) Blood Gas, Venous, POCT, Blood (03/07/2024 4:47 PM DISTRIBUTED GENERATION PROJECT MANAGER) pH, Venous, POCT, B 7.43 7.32 - 7.43 03/07/2024 4:58 PM DISTRIBUTED GENERATION PROJECT MANAGER [facility] pCO2, Venous, POCT, B 55(H) 41 - 51 mm Hg 03/07/2024 4:58 PM DISTRIBUTED GENERATION PROJECT MANAGER [facility] pO2, Venous, POCT, B 19 Not applicable mm Hg 03/07/2024 4:58 PM DISTRIBUTED GENERATION PROJECT MANAGER [facility] HCO3, Venous, POCT, B 36 Not applicable mmol/L 03/07/2024 4:58 PM DISTRIBUTED GENERATION PROJECT MANAGER [facility] Base Excess, Venous, POCT, B 12 Not applicable mmol/L 03/07/2024 4:58 PM DISTRIBUTED GENERATION PROJECT MANAGER [facility] O2 Saturation, Venous, POCT, B 30 Not applicable % 03/07/2024 4:58 PM DISTRIBUTED GENERATION PROJECT MANAGER [facility] Sample Type, Blood Gas, POCT ALEJANDRO 03/07/2024 4:58 PM DISTRIBUTED GENERATION PROJECT MANAGER [facility] Blood (Blood, Venous) 03/07/2024 4:47 PM DISTRIBUTED GENERATION PROJECT MANAGER 03/07/2024 4:48 PM DISTRIBUTED GENERATION PROJECT MANAGER us Brianna Doe P.A.-C. LAB POCT ORDERABLES - DEVICE Final Result [facility] [address] [place] [id number], [facility] in [address] [address] * CT Abdomen Pelvis with IV Contrast (03/07/2024 4:28 PM DISTRIBUTED GENERATION PROJECT MANAGER) Anatomical Region Laterality Modality Abdomen, Pelvis, Abdominal R ST LOS, Abdominal ARZ LOS, Abdominal FLA LOS N/A Computed Tomography 03/07/2024 4:13 PM DISTRIBUTED GENERATION PROJECT MANAGER Impressions 03/07/2024 4:56 PM DISTRIBUTED GENERATION PROJECT MANAGER 1. No acute disease in the chest, abdomen, or pelvis. 2. No evidence of metastatic disease in the chest, abdomen, or pelvis. 3. Postsurgical changes in the left inguinal region with surgical clips with a 2 cm rounded fluid collection or necrotic density favored to be a postoperative seroma or lymphocele over a necrotic lymph node. This could be compared with prior imaging or followed with a future CT to ensure it remains stable. 4. Irregular shaped 1.8 cm indeterminate uncalcified nodular opacity in the inferior anterior right upper lobe of lung is likely inflammatory/infectious or postinflammatory/postinfectious but given the underlying emphysema warrants short-term follow-up CT in a few months to ensure it remains stable or resolves in order to entirely exclude an ill-defined neoplasm. Few additional tiny and smaller nodules and nodular opacities in the lungs are likely benign. 5. Mild emphysema. 6. Scattered mucus plugging in the lungs with mild hazy and nodular opacity in the right middle lobe which should be inflammatory and related to the mucus plugging. 7. Moderate atherosclerotic coronary artery calcification. 8. Mild intrahepatic biliary prominence or mild periportal edema. Narrative 03/07/2024 4:56 PM DISTRIBUTED GENERATION PROJECT MANAGER EXAM: CT CHEST WITH IV CONTRAST, CT ABDOMEN PELVIS WITH IV CONTRAST COMPARISON: None. FINDINGS: Chest: No metastatic disease in the chest. Small ill-defined indeterminate nodular opacity in the inferior anterior right upper lobe measures 1.8 x 1.6 cm on image 77 of series 3 and contains air bronchograms. This may be inflammatory/infectious or postinflammatory nature but would warrant a short-term follow-up CT in a few months to ensure it remains stable or resolves and exclude other etiologies such as neoplasm. Mild emphysema. Mild peripheral ill-defined and nodular opacities in the upper lobes and lung apices likely fibrotic. Mild hazy and nodular opacities in the right middle lobe likely inflammatory or postinflammatory with associated mucus plugging. Small plaque-like area of nodular opacity in the superior segment of the right lower lobe posterior medially measures 7 to 8 mm on image 56 of series 3 and is uncalcified. 3 mm uncalcified nodule left upper lobe laterally on image 58 of series 3. Small amount of mucus plugging in the lingula. Small amounts of mucus plugging in the left lower lobe. Small amount of linear and nodular opacity in the inferior lateral left lower lobe likely related atelectasis or minimal inflammatory opacity is plugging. Significant paucity of subcutaneous fat. Few small and tiny vague areas of low-density in bilateral left lower lobe pulmonary arteries is most likely artifactual. No central pulmonary embolus. Moderate atherosclerotic coronary artery calcification. Small calcified granuloma in the left lower lobe consistent with the sequela of previous granulomatous disease. Abdomen and pelvis: No metastatic disease in the abdomen or pelvis. Mild linear low-density along the intrahepatic portal vessels could be related to minimal intrahepatic biliary dilatation or mild periportal edema. Joanna's lobe of the liver with the right hepatic lobe extending caudally to the level of the mid pelvis. Mild distention of the distal second portion of the duodenum. Scattered small to upper limits of normal left perinephric abdominal retroperitoneal lymph nodes. Postsurgical changes in the left groin. Small mildly thick-walled fluid collection or centrally necrotic density in the left groin measuring 2 cm could be a postoperative lymphocele or seroma or less likely a necrotic lymph node. Colonic diverticulosis. Small to moderate amounts of stool in the colon. The appendix is normal where seen. Paucity of subcutaneous and intra-abdominal and intrapelvic fat. Skeleton/other: No skeletal metastases. Moderate thoracolumbar scoliosis. Small nonspecific lucent lesion in the right iliac bone on image 11 of series 12. Few tiny sclerotic lesions within the skeleton consistent with bone islands. Remainder negative. 3D maximum intensity projection (MIP) images were created on a dependent workstation as ordered by the treating provider and reviewed by the radiologist to increase sensitivity for detection of pulmonary nodules. Procedure Note Charles Keane M.D. - 03/07/2024 EXAM: CT CHEST WITH IV CONTRAST, CT ABDOMEN PELVIS WITH IV CONTRAST COMPARISON: None. FINDINGS: Chest: No metastatic disease in the chest. Small ill-defined indeterminatenodular opacity in the inferior anterior right upper lobe measures 1.8 x1.6 cm on image 77 of series 3 and contains air bronchograms. This may beinflammatory/infectious or postinflammatory nature but would warrant a short-term follow-up CT in afew months to ensure it remains stable or resolves and exclude otheretiologies such as neoplasm. Mild emphysema. Mild peripheral ill-definedand nodular opacities in the upper lobes and lung apices likely fibrotic. Mild hazy and nodular opacities inthe right middle lobe likely inflammatory or postinflammatory withassociated mucus plugging. Small plaque-like area of nodular opacity inthe superior segment of the right lower lobe posterior medially measures 7 to 8 mm on image 56 of series 3 and isuncalcified. 3 mm uncalcified nodule left upper lobe laterally on image 58of series 3. Small amount of mucus plugging in the lingula. Small amountsof mucus plugging in the left lower lobe. Small amount of linear and nodular opacity in the inferiorlateral left lower lobe likely related atelectasis or minimal inflammatoryopacity is plugging. Significant paucity of subcutaneous fat. Few small and tiny vague areas oflow- density in bilateral left lower lobe pulmonary arteries is most likelyartifactual. No central pulmonary embolus. Moderate atheroscleroticcoronary artery calcification. Small calcified granuloma in the left lower lobe consistent with the sequela ofprevious granulomatous disease. Abdomen and pelvis: No metastatic disease in the abdomen or pelvis. Mild linear low-densityalong the intrahepatic portal vessels could be related to minimalintrahepatic biliary dilatation or mild periportal edema. Joanna's lobe ofthe liver with the right hepatic lobe extending caudally to the level of the mid pelvis. Mild distention of thedistal second portion of the duodenum. Scattered small to upper limits ofnormal left perinephric abdominal retroperitoneal lymph nodes.Postsurgical changes in the left groin. Small mildly thick-walled fluid collection or centrally necrotic densityin the left groin measuring 2 cm could be a postoperative lymphocele orseroma or less likely a necrotic lymph node. Colonic diverticulosis. Smallto moderate amounts of stool in the colon. The appendix is normal where seen. Paucity of subcutaneous andintra-abdominal and intrapelvic fat. Skeleton/other: No skeletal metastases. Moderate thoracolumbar scoliosis. Smallnonspecific lucent lesion in the right iliac bone on image 11 of [id number]. Few tiny sclerotic lesions within the skeleton consistent with boneislands. Remainder negative. 3D maximum intensity projection (MIP) images were created on a dependentworkstation as ordered by the treating provider and reviewed by theradiologist to increase sensitivity for detection of pulmonary nodules. IMPRESSION: 1. No acute disease in the chest, abdomen, or pelvis. 2. No evidence of metastatic disease in the chest, abdomen, or pelvis. 3. Postsurgical changes in the left inguinal region with surgical clipswith a 2 cm rounded fluid collection or necrotic density favored to be apostoperative seroma or lymphocele over a necrotic lymph node. This couldbe compared with prior imaging or followed with a future CT to ensure it remains stable. 4. Irregular shaped 1.8 cm indeterminate uncalcified nodular opacity inthe inferior anterior right upper lobe of lung is likelyinflammatory/infectious or postinflammatory/postinfectious but given theunderlying emphysema warrants short-term follow-up CT in a few months to ensure it remains stable or resolves in order toentirely exclude an ill-defined neoplasm. Few additional tiny and smallernodules and nodular opacities in the lungs are likely benign. 5. Mild emphysema. 6. Scattered mucus plugging in the lungs with mild hazy and nodularopacity in the right middle lobe which should be inflammatory and relatedto the mucus plugging. 7. Moderate atherosclerotic coronary artery calcification. 8. Mild intrahepatic biliary prominence or mild periportal edema. us Brianna Doe P.A.-C. IMG CT PROCEDURES F inal Result * CT Chest with IV Contrast (03/07/2024 4:28 PM DISTRIBUTED GENERATION PROJECT MANAGER) Anatomical Region Laterality Modality Chest, Thoracic RST LOS, Tho racic ARZ LOS, Thoracic ARZ LOS, Thoracic FLA LOS N/A Computed Tomography 03/07/2024 4:27 PM DISTRIBUTED GENERATION PROJECT MANAGER Impressions 03/07/2024 4:56 PM DISTRIBUTED GENERATION PROJECT MANAGER 1. No acute disease in the chest, abdomen, or pelvis. 2. No evidence of metastatic disease in the chest, abdomen, or pelvis. 3. Postsurgical changes in the left inguinal region with surgical clips with a 2 cm rounded fluid collection or necrotic density favored to be a postoperative seroma or lymphocele over a necrotic lymph node. This could be compared with prior imaging or followed with a future CT to ensure it remains stable. 4. Irregular shaped 1.8 cm indeterminate uncalcified nodular opacity in the inferior anterior right upper lobe of lung is likely inflammatory/infectious or postinflammatory/postinfectious but given the underlying emphysema warrants short-term follow-up CT in a few months to ensure it remains stable or resolves in order to entirely exclude an ill-defined neoplasm. Few additional tiny and smaller nodules and nodular opacities in the lungs are likely benign. 5. Mild emphysema. 6. Scattered mucus plugging in the lungs with mild hazy and nodular opacity in the right middle lobe which should be inflammatory and related to the mucus plugging. 7. Moderate atherosclerotic coronary artery calcification. 8. Mild intrahepatic biliary prominence or mild periportal edema. Narrative 03/07/2024 4:56 PM DISTRIBUTED GENERATION PROJECT MANAGER EXAM: CT CHEST WITH IV CONTRAST, CT ABDOMEN PELVIS WITH IV CONTRAST COMPARISON: None. FINDINGS: Chest: No metastatic disease in the chest. Small ill-defined indeterminate nodular opacity in the inferior anterior right upper lobe measures 1.8 x 1.6 cm on image 77 of series 3 and contains air bronchograms. This may be inflammatory/infectious or postinflammatory nature but would warrant a short-term follow-up CT in a few months to ensure it remains stable or resolves and exclude other etiologies such as neoplasm. Mild emphysema. Mild peripheral ill-defined and nodular opacities in the upper lobes and lung apices likely fibrotic. Mild hazy and nodular opacities in the right middle lobe likely inflammatory or postinflammatory with associated mucus plugging. Small plaque-like area of nodular opacity in the superior segment of the right lower lobe posterior medially measures 7 to 8 mm on image 56 of series 3 and is uncalcified. 3 mm uncalcified nodule left upper lobe laterally on image 58 of series 3. Small amount of mucus plugging in the lingula. Small amounts of mucus plugging in the left lower lobe. Small amount of linear and nodular opacity in the inferior lateral left lower lobe likely related atelectasis or minimal inflammatory opacity is plugging. Significant paucity of subcutaneous fat. Few small and tiny vague areas of low-density in bilateral left lower lobe pulmonary arteries is most likely artifactual. No central pulmonary embolus. Moderate atherosclerotic coronary artery calcification. Small calcified granuloma in the left lower lobe consistent with the sequela of previous granulomatous disease. Abdomen and pelvis: No metastatic disease in the abdomen or pelvis. Mild linear low-density along the intrahepatic portal vessels could be related to minimal intrahepatic biliary dilatation or mild periportal edema. Joanna's lobe of the liver with the right hepatic lobe extending caudally to the level of the mid pelvis. Mild distention of the distal second portion of the duodenum. Scattered small to upper limits of normal left perinephric abdominal retroperitoneal lymph nodes. Postsurgical changes in the left groin. Small mildly thick-walled fluid collection or centrally necrotic density in the left groin measuring 2 cm could be a postoperative lymphocele or seroma or less likely a necrotic lymph node. Colonic diverticulosis. Small to moderate amounts of stool in the colon. The appendix is normal where seen. Paucity of subcutaneous and intra-abdominal and intrapelvic fat. Skeleton/other: No skeletal metastases. Moderate thoracolumbar scoliosis. Small nonspecific lucent lesion in the right iliac bone on image 11 of series 12. Few tiny sclerotic lesions within the skeleton consistent with bone islands. Remainder negative. 3D maximum intensity projection (MIP) images were created on a dependent workstation as ordered by the treating provider and reviewed by the radiologist to increase sensitivity for detection of pulmonary nodules. Procedure Note Charles Keane M.D. - 03/07/2024 EXAM: CT CHEST WITH IV CONTRAST, CT ABDOMEN PELVIS WITH IV CONTRAST COMPARISON: None. FINDINGS: Chest: No metastatic disease in the chest. Small ill-defined indeterminatenodular opacity in the inferior anterior right upper lobe measures 1.8 x1.6 cm on image 77 of series 3 and contains air bronchograms. This may beinflammatory/infectious or postinflammatory nature but would warrant a short-term follow-up CT in afew months to ensure it remains stable or resolves and exclude otheretiologies such as neoplasm. Mild emphysema. Mild peripheral ill-definedand nodular opacities in the upper lobes and lung apices likely fibrotic. Mild hazy and nodular opacities inthe right middle lobe likely inflammatory or postinflammatory withassociated mucus plugging. Small plaque-like area of nodular opacity inthe superior segment of the right lower lobe posterior medially measures 7 to 8 mm on image 56 of series 3 and isuncalcified. 3 mm uncalcified nodule left upper lobe laterally on image 58of series 3. Small amount of mucus plugging in the lingula. Small amountsof mucus plugging in the left lower lobe. Small amount of linear and nodular opacity in the inferiorlateral left lower lobe likely related atelectasis or minimal inflammatoryopacity is plugging. Significant paucity of subcutaneous fat. Few small and tiny vague areas oflow- density in bilateral left lower lobe pulmonary arteries is most likelyartifactual. No central pulmonary embolus. Moderate atheroscleroticcoronary artery calcification. Small calcified granuloma in the left lower lobe consistent with the sequela ofprevious granulomatous disease. Abdomen and pelvis: No metastatic disease in the abdomen or pelvis. Mild linear low-densityalong the intrahepatic portal vessels could be related to minimalintrahepatic biliary dilatation or mild periportal edema. Joanna's lobe ofthe liver with the right hepatic lobe extending caudally to the level of the mid pelvis. Mild distention of thedistal second portion of the duodenum. Scattered small to upper limits ofnormal left perinephric abdominal retroperitoneal lymph nodes.Postsurgical changes in the left groin. Small mildly thick-walled fluid collection or centrally necrotic densityin the left groin measuring 2 cm could be a postoperative lymphocele orseroma or less likely a necrotic lymph node. Colonic diverticulosis. Smallto moderate amounts of stool in the colon. The appendix is normal where seen. Paucity of subcutaneous andintra-abdominal and intrapelvic fat. Skeleton/other: No skeletal metastases. Moderate thoracolumbar scoliosis. Smallnonspecific lucent lesion in the right iliac bone on image 11 of [id number]. Few tiny sclerotic lesions within the skeleton consistent with boneislands. Remainder negative. 3D maximum intensity projection (MIP) images were created on a dependentworkstation as ordered by the treating provider and reviewed by theradiologist to increase sensitivity for detection of pulmonary nodules. IMPRESSION: 1. No acute disease in the chest, abdomen, or pelvis. 2. No evidence of metastatic disease in the chest, abdomen, or pelvis. 3. Postsurgical changes in the left inguinal region with surgical clipswith a 2 cm rounded fluid collection or necrotic density favored to be apostoperative seroma or lymphocele over a necrotic lymph node. This couldbe compared with prior imaging or followed with a future CT to ensure it remains stable. 4. Irregular shaped 1.8 cm indeterminate uncalcified nodular opacity inthe inferior anterior right upper lobe of lung is likelyinflammatory/infectious or postinflammatory/postinfectious but given theunderlying emphysema warrants short-term follow-up CT in a few months to ensure it remains stable or resolves in order toentirely exclude an ill-defined neoplasm. Few additional tiny and smallernodules and nodular opacities in the lungs are likely benign. 5. Mild emphysema. 6. Scattered mucus plugging in the lungs with mild hazy and nodularopacity in the right middle lobe which should be inflammatory and relatedto the mucus plugging. 7. Moderate atherosclerotic coronary artery calcification. 8. Mild intrahepatic biliary prominence or mild periportal edema. us Brianna Doe P.A.-C. IMG CT PROCEDURES F inal Result * CT Head without IV Contrast (03/07/2024 3:56 PM DISTRIBUTED GENERATION PROJECT MANAGER) Anatomical Region Laterality Modality Head, Neuroradiology RST LOS , Neuroradiology ARZ LOS, Neuroradiology FLA [facility] N/A Computed Tomography 03/07/2024 4:00 PM DISTRIBUTED GENERATION PROJECT MANAGER Impressions 03/07/2024 4:06 PM DISTRIBUTED GENERATION PROJECT MANAGER 1. No acute intracranial disease. 2. No definite brain or intracranial metastases. MRI brain is more sensitive for exclusion of intracranial metastatic disease if this is a consideration. 3. Chronic intracranial findings. Narrative 03/07/2024 4:06 PM DISTRIBUTED GENERATION PROJECT MANAGER EXAM: CT HEAD WITHOUT IV CONTRAST COMPARISON: None FINDINGS: No acute intracranial hemorrhage, edema, or mass effect. No definite brain or intracranial metastases. Mild to moderate diffuse cerebral and cerebellar atrophy. Moderate prominence of the lateral and to lesser extent third and fourth ventricles chronic. Mastoid air cells and visualized paranasal sinuses are clear. Remainder negative. Procedure Note Charles Keane M.D. - 03/07/2024 EXAM: CT HEAD WITHOUT IV CONTRAST COMPARISON: None FINDINGS: No acute intracranial hemorrhage, edema, or mass effect. No definite brainor intracranial metastases. Mild to moderate diffuse cerebral andcerebellar atrophy. Moderate prominence of the lateral and to lesserextent third and fourth ventricles chronic. Mastoid air cells and visualized paranasal sinuses are clear. Remaindernegative. IMPRESSION: 1. No acute intracranial disease. 2. No definite brain or intracranial metastases. MRI brain is moresensitive for exclusion of intracranial metastatic disease if this is aconsideration. 3. Chronic intracranial findings. us Brianna Doe P.A.-C. IMG CT PROCEDURES F inal Result * ECG 12 Lead (03/07/2024 3:06 PM DISTRIBUTED GENERATION PROJECT MANAGER) Ventricular Rate ECG/Min 48 BPM MUSE IA Interval 160 ms MUSE QRSD Interval 84 ms MUSE QT Interval 448 ms MUSE QTC Interval 400 ms MUSE P [place] 82 degrees MUSE R [place] 72 degrees MUSE T Wave [place] 79 degrees MUSE 03/07/2024 3:06 PM DISTRIBUTED GENERATION PROJECT MANAGER 03/07/2024 3:33 PM DISTRIBUTED GENERATION PROJECT MANAGER Impressions MUSE - 03/07/2024 3:08 PM DISTRIBUTED GENERATION PROJECT MANAGER Marked sinus bradycardia Low anterior forces Nonspecific ST abnormality When compared with ECG of 14-Jul-1997 08:31, Premature atrial complexes are no longer present Reviewed by MADELEINE Ruggiero Narrative Procedure Note Philip Bazan M.D. - 03/07/2024 IMPRESSION: Marked sinus bradycardia Low anterior forces Nonspecific ST abnormality When compared with ECG of 14-Jul-1997 08:31, Premature atrial complexes are no longer present Reviewed by MADELEINE Ruggiero Brianna Doe P.A.-C. ECG ORDERABLES Giles chi Result - Final MUSE NA * DX Chest AP or PA and Lateral 2 Views (03/07/2024 2:34 PM DISTRIBUTED GENERATION PROJECT MANAGER) Anatomical Region Laterality Modality Chest, Thoracic RST LOS, Tho racic ARZ LOS, Thoracic FLA LOS N/A Digital Radiography Impressions 03/07/2024 2:40 PM DISTRIBUTED GENERATION PROJECT MANAGER Heart size is normal. Marked hyperinflation of both lungs consistent with COPD. Moderate to prominent emphysematous changes throughout both lungs greatest in the right upper lobe and lower lungs bilaterally. Small to moderate-sized hyperlucency in the left lung base likely a bulla. Mild linear atelectasis or scarring in the right lung base and right upper lobe. Mild nodular fibrosis in the lung apices. Mild nodular fibrotic change in the lower retrosternal region. Mild thoracolumbar scoliosis. Pectus excavatum deformity. Chest otherwise negative without acute disease. Narrative 03/07/2024 2:40 PM DISTRIBUTED GENERATION PROJECT MANAGER EXAM: DX CHEST AP OR PA AND LATERAL 2 VIEWS Procedure Note Charles Keane M.D. - 03/07/2024 EXAM: DX CHEST AP OR PA AND LATERAL 2 VIEWS IMPRESSION: Heart size is normal. Marked hyperinflation of both lungs consistent withCOPD. Moderate to prominent emphysematous changes throughout both lungsgreatest in the right upper lobe and lower lungs bilaterally. Small tomoderate-sized hyperlucency in the left lung base likely a bulla. Mild linear atelectasis or scarring in theright lung base and right upper lobe. Mild nodular fibrosis in the lungapices. Mild nodular fibrotic change in the lower retrosternal region.Mild thoracolumbar scoliosis. Pectus excavatum deformity. Chest otherwise negative without acute disease. us Brianna Doe P.A.-C. IMG DIAGNOSTIC IMAG ING PROCEDURES Final Result * (ABNORMAL) Morphology Evaluation (03/07/2024 2:05 PM DISTRIBUTED GENERATION PROJECT MANAGER) Pathologist [facility] RBC Morphology Normal 03/07/2024 2:35 PM DISTRIBUTED GENERATION PROJECT MANAGER [facility] PLT Morphology Normal 03/07/2024 2:35 PM DISTRIBUTED GENERATION PROJECT MANAGER [facility] PLT Estimate Decreased( A) Adequate 03/07/2024 2:35 PM DISTRIBUTED GENERATION PROJECT MANAGER [facility] Blood 03/07/2024 2:05 PM DISTRIBUTED GENERATION PROJECT MANAGER 03/07/2024 2:07 PM DISTRIBUTED GENERATION PROJECT MANAGER Brianna Doe P.A.-C. LAB BLOOD ADD-ON Fi nal Result Performing Organization Address [facility] Co de Phone Number [address] [address], [facility] in [address] [address] * D-Dimer (03/07/2024 2:05 PM DISTRIBUTED GENERATION PROJECT MANAGER) [facility] D-Dimer, P 398 <=500 ng/mL FEU 03/07/2024 2:22 PM DISTRIBUTED GENERATION PROJECT MANAGER [facility] Comment: ----ADDITIONAL INFORMATION---- D-dimer values less than or equal to 500 ng/mL fibrinogen equivalent units (FEU) may be used in conjunction with clinical pre-test probability to exclude deep vein thrombosis (DVT) and/or pulmonary embolism (PE). Blood (Blood, Venous) 03/07/2024 2:05 PM DISTRIBUTED GENERATION PROJECT MANAGER 03/07/2024 2:07 PM DISTRIBUTED GENERATION PROJECT MANAGER Brianna Doe P.A.-C. LAB BLOOD ADD-ON Fi nal Result Performing Organization Address [facility] Co de Phone Number [facility] [address] [place] [phone], [facility] in [address] [address] * (ABNORMAL) CBC with Differential, Blood (03/07/2024 2:05 PM DISTRIBUTED GENERATION PROJECT MANAGER) [facility] Hemoglobin 13.0 11.6 - 15.0 g/dL 03/07/2024 2:15 PM DISTRIBUTED GENERATION PROJECT MANAGER [facility] Hematocrit 37.5 35.5 - 44.9 % 03/07/2024 2:15 PM DISTRIBUTED GENERATION PROJECT MANAGER [facility] Erythrocytes 3.78(L) 3.92 - 5.13 x10(12)/L 03/07/2024 2:15 PM DISTRIBUTED GENERATION PROJECT MANAGER [facility] MCV 99.2(H) 78.2 - 97.9 fL 03/07/2024 2:15 PM DISTRIBUTED GENERATION PROJECT MANAGER [facility] RBC Distrib Width 12.7 12.2 - 16.1 % 03/07/2024 2:15 PM DISTRIBUTED GENERATION PROJECT MANAGER [facility] Platelet Count 78(L) 157 - 371 x10(9)/L 03/07/2024 2:15 PM DISTRIBUTED GENERATION PROJECT MANAGER [facility] Leukocytes 3.2(L) 3.4 - 9.6 x10(9)/L 03/07/2024 2:15 PM DISTRIBUTED GENERATION PROJECT MANAGER [facility] Neutrophils 1.24(L) 1.56 - 6.45 x10(9)/L 03/07/2024 2:15 PM DISTRIBUTED GENERATION PROJECT MANAGER [facility] Lymphocytes 1.72 0.95 - 3.07 x10(9)/L 03/07/2024 2:15 PM DISTRIBUTED GENERATION PROJECT MANAGER [facility] Monocytes 0.21(L) 0.26 - 0.81 x10(9)/L 03/07/2024 2:15 PM DISTRIBUTED GENERATION PROJECT MANAGER [facility] Eosinophils <0.04 0.03 - 0.48 x10(9)/L 03/07/2024 2:15 PM DISTRIBUTED GENERATION PROJECT MANAGER [facility] Basophils <0.04 0.01 - 0.08 x10(9)/L 03/07/2024 2:15 PM DISTRIBUTED GENERATION PROJECT MANAGER [facility] Blood (Blood, Venous) 03/07/2024 2:05 PM DISTRIBUTED GENERATION PROJECT MANAGER 03/07/2024 2:07 PM DISTRIBUTED GENERATION PROJECT MANAGER us Brianna Doe P.A.-C. LAB BLOOD ADD-ON Fi nal Result [facility] [address] [place] [phone], [facility] in [address] [address] * (ABNORMAL) Comprehensive Metabolic Panel (03/07/2024 2:05 PM DISTRIBUTED GENERATION PROJECT MANAGER) Potassium, P 4.5 3.6 - 5.2 mmol/L 03/07/2024 2:25 PM DISTRIBUTED GENERATION PROJECT MANAGER [facility] Sodium, P 132(L) 135 - 145 mmol/L 03/07/2024 2:25 PM DISTRIBUTED GENERATION PROJECT MANAGER [facility] Chloride, P 90(L) 98 - 107 mmol/L 03/07/2024 2:25 PM DISTRIBUTED GENERATION PROJECT MANAGER [facility] Bicarbonate, P 36(H) 22 - 29 mmol/L 03/07/2024 2:25 PM DISTRIBUTED GENERATION PROJECT MANAGER [facility] Anion Gap, P 6(L) 7 - 15 03/07/2024 2:25 PM DISTRIBUTED GENERATION PROJECT MANAGER [facility] BUN (Blood Urea Nitrogen), P 15 6 - 21 mg/dL 03/07/2024 2:25 PM DISTRIBUTED GENERATION PROJECT MANAGER [facility] Creatinine 1.09(H) 0.59 - 1.04 mg/dL 03/07/2024 2:25 PM DISTRIBUTED GENERATION PROJECT MANAGER [facility] Estimated GFR (eGFR) 63 >=60 mL/min/BS A 03/07/2024 2:25 PM DISTRIBUTED GENERATION PROJECT MANAGER [facility] Comment: Estimated GFR calculated using the 2020 CKD_EPI creatinine equation. Calcium, Total, P 9.4 8.6 - 10.0 mg/dL 03/07/2024 2:25 PM DISTRIBUTED GENERATION PROJECT MANAGER [facility] Glucose, P 91 70 - 140 mg/dL 03/07/2024 2:25 PM DISTRIBUTED GENERATION PROJECT MANAGER [facility] Protein, Total, P 6.0(L) 6.3 - 7.9 g/dL 03/07/2024 2:25 PM DISTRIBUTED GENERATION PROJECT MANAGER [facility] Albumin, P 3.9 3.5 - 5.0 g/dL 03/07/2024 2:25 PM DISTRIBUTED GENERATION PROJECT MANAGER [facility] Aspartate Aminotransferase (AST), P 22 8 - 43 U/L 03/07/2024 2:25 PM DISTRIBUTED GENERATION PROJECT MANAGER [facility] Alkaline Phosphatase, P 58 35 - 104 U/L 03/07/2024 2:25 PM DISTRIBUTED GENERATION PROJECT MANAGER [facility] Alanine Aminotransferase (ALT), P 14 7 - 45 U/L 03/07/2024 2:25 PM DISTRIBUTED GENERATION PROJECT MANAGER [facility] Bilirubin, Total, P 0.5 0.0 - 1.2 mg/dL 03/07/2024 2:25 PM DISTRIBUTED GENERATION PROJECT MANAGER [facility] Blood (Blood, Venous) 03/07/2024 2:05 PM DISTRIBUTED GENERATION PROJECT MANAGER 03/07/2024 2:07 PM DISTRIBUTED GENERATION PROJECT MANAGER us Brianna Doe P.A.-C. LAB BLOOD ADD-ON Fi nal Result [facility] [address] [place] [phone], [facility] in [place] [address] from Last 3 Months
--- OUTSIDE RECORDS SUMMARY | 2024-03-13 14:49 | XMS_ITS ---
Author Organization [facility] Address [address] [place] [address] Care Team Providers Care Caddy Packer Name Role Phone Unavailable Unavailable Unavailable Surgery Details Not on file Complications Check Surgery Details section. Procedure Estimated Blood Loss Check Surgery Details section. Procedure Findings Check Surgery Details section. Procedure Specimens Taken Check Surgery Details section.
--- OUTSIDE RECORDS SUMMARY | 2024-03-13 14:49 | XMS_ITS | Referral Summary ---
Author Organization [facility] Address [address] [place] [address] Care Team Providers Care Cord Cutter Name Role Phone Unavailable Primary Care Provider Unavailabl e Source Comments Patient records contain information from all sites at [facility]. For routine questions regarding patient records, call [phone] during business hours, M-F 8:00 AM - 5:00 PM Central Time. Record requests for emergency care only can be directed to [phone] at any time.[facility] Encounters Date Type Department Care Team Description 03/07/2024 3:12 PM ACCESS REGISTRAR - 03/07/2024 5:36 PM [facility] [address] [place] [address] Brianna Doe, P.A.-C. Pneumonia (Primary Dx); Loss Weight Abnormal; Thrombocytopenia (HCC); Leukocytopenia Discharge Disposition: Home or Self Care from Last 3 Months Allergies Active Allergy Reactions Criticality Noted Date [...] Problem Noted Date Diagnosed Date Preplacement Exam Immunizations Name Administration Dates Next Due Td, [...] on file Legal Sex Female 10:55 AM ACCESS REGISTRAR Gender Identity Not on file Sexual Orientation Not on file Last Filed Vital Signs Vital Sign Reading Time Taken Comments Blood Pressure 120/88 03/07/2024 5:15 PM ACCESS REGISTRAR Pulse 45 03/07/2024 5:00 PM ACCESS REGISTRAR Temperature 36.9 C (98.4 F) 03/07/2024 3:10 PM ACCESS REGISTRAR Respiratory Rate 11 03/07/2024 5:15 PM ACCESS REGISTRAR Oxygen Saturation 98% 03/07/2024 5:00 PM ACCESS REGISTRAR Inhaled Oxygen Concentration - - Weight 49.7 kg (109 lb 9.1 oz) 03/07/2024 3:10 P M ACCESS REGISTRAR Height - - Body Mass Index - - Plan of Treatment Not on file Procedures Procedure Name Priority Date/Time Associated Diagnosis Comments VBG (VENOUS BLOOD GAS), POCT, B STAT 03/07/2024 4:[address] ABDOMEN PELVIS WITH IV CONTRAST RAD - Semiurgent (Fast; most ED patients; some inpatients) 03/07/2024 4:[address] CHEST WITH IV CONTRAST RAD - Semiurgent (Fast; most ED patients; some inpatients) 03/07/2024 4:[address] HEAD WITHOUT IV CONTRAST RAD - Semiurgent (Fast; most ED patients; some inpatients) 03/07/2024 3:56 PM ACCESS REGISTRAR ECG STAT 03/07/2024 3:06 PM ACCESS REGISTRAR DX CHEST AP OR PA AND LATERAL 2 VIEWS RAD - Semiurgent (Fast; most ED patients; some inpatients) 03/07/2024 2:34 PM ACCESS REGISTRAR MORPHOLOGY EVALUATION STAT 03/07/2024 2:05 PM ACCESS REGISTRAR D-DIMER, P STAT 03/07/2024 2:05 PM ACCESS REGISTRAR COMPREHENSIVE METABOLIC PANEL, S/P STAT 03/07/2024 2:05 PM ACCESS REGISTRAR CBC WITH DIFFERENTIAL, B STAT 03/07/2024 2:05 PM ACCESS REGISTRAR from Last 3 Months Results * (ABNORMAL) Blood Gas, Venous, POCT, Blood (03/07/2024 4:47 PM ACCESS REGISTRAR) pH, Venous, POCT, B 7.43 7.32 - 7.43 03/07/2024 4:58 PM ACCESS REGISTRAR [facility] pCO2, Venous, POCT, B 55(H) 41 - 51 mm Hg 03/07/2024 4:58 PM ACCESS REGISTRAR [facility] pO2, Venous, POCT, B 19 Not applicable mm Hg 03/07/2024 4:58 PM ACCESS REGISTRAR [facility] HCO3, Venous, POCT, B 36 Not applicable mmol/L 03/07/2024 4:58 PM ACCESS REGISTRAR [facility] Base Excess, Venous, POCT, B 12 Not applicable mmol/L 03/07/2024 4:58 PM ACCESS REGISTRAR [facility] O2 Saturation, Venous, POCT, B 30 Not applicable % 03/07/2024 4:58 PM ACCESS REGISTRAR [facility] Sample Type, Blood Gas, POCT ALEJANDRO 03/07/2024 4:58 PM ACCESS REGISTRAR [facility] Blood (Blood, Venous) 03/07/2024 4:47 PM ACCESS REGISTRAR 03/07/2024 4:48 PM ACCESS REGISTRAR us Brianna Doe P.A.-C. LAB POCT ORDERABLES - DEVICE Final Result [facility] [address] [place] [phone], [facility] in [address] [address] * CT Abdomen Pelvis with IV Contrast (03/07/2024 4:28 PM ACCESS REGISTRAR) Anatomical Region Laterality Modality Abdomen, Pelvis, Abdominal R ST LOS, Abdominal ARZ LOS, Abdominal FLA LOS N/A Computed Tomography 03/07/2024 4:13 PM ACCESS REGISTRAR Impressions 03/07/2024 4:56 PM ACCESS REGISTRAR 1. No acute disease in the chest, [...] mild periportal edema. Narrative 03/07/2024 4:56 PM ACCESS REGISTRAR EXAM: CT CHEST WITH IV CONTRAST, CT [...] right iliac bone on image 11 of [id number]. Few tiny sclerotic lesions within the skeleton [...] Chest with IV Contrast (03/07/2024 4:28 PM ACCESS REGISTRAR) Anatomical Region Laterality Modality Chest, Thoracic RST LOS, Tho racic ARZ LOS, Thoracic ARZ LOS, Thoracic FLA LOS N/A Computed Tomography 03/07/2024 4:27 PM ACCESS REGISTRAR Impressions 03/07/2024 4:56 PM ACCESS REGISTRAR 1. No acute disease in the chest, [...] mild periportal edema. Narrative 03/07/2024 4:56 PM ACCESS REGISTRAR EXAM: CT CHEST WITH IV CONTRAST, CT [...] right iliac bone on image 11 of . Few tiny sclerotic lesions within the skeleton [...] intrahepatic biliary prominence or mild periportal edema. Brianna Doe P.A.-C. IMG CT PROCEDURES F inal Result * CT Head without IV Contrast (03/07/2024 3:56 PM ACCESS REGISTRAR) Anatomical Region Laterality Modality Head, Neuroradiology RST LOS , Neuroradiology ARZ LOS, Neuroradiology FLA LOS N/A Computed Tomography 03/07/2024 4:00 PM ACCESS REGISTRAR Impressions 03/07/2024 4:06 PM ACCESS REGISTRAR 1. No acute intracranial disease. 2. No definite brain or intracranial metastases. MRI brain is more sensitive for exclusion of intracranial metastatic disease if this is a consideration. 3. Chronic intracranial findings. Narrative 03/07/2024 4:06 PM ACCESS REGISTRAR EXAM: CT HEAD WITHOUT IV CONTRAST COMPARISON: [...] this is aconsideration. 3. Chronic intracranial findings. Brianna Doe P.A.-C. IMG CT PROCEDURES F inal Result * ECG 12 Lead (03/07/2024 3:06 PM ACCESS REGISTRAR) Ventricular Rate ECG/Min 48 BPM MUSE HI Interval 160 ms MUSE QRSD Interval 84 ms MUSE QT Interval 448 ms MUSE QTC Interval 400 ms MUSE P [place] 82 degrees MUSE R [place] 72 degrees MUSE T Wave [place] 79 degrees MUSE 03/07/2024 3:06 PM ACCESS REGISTRAR 03/07/2024 3:33 PM ACCESS REGISTRAR Impressions MUSE - 03/07/2024 3:08 PM ACCESS REGISTRAR Marked sinus bradycardia Low anterior forces Nonspecific [...] and Lateral 2 Views (03/07/2024 2:34 PM ACCESS REGISTRAR) Anatomical Region Laterality Modality Chest, Thoracic RST LOS, Tho racic ARZ LOS, Thoracic FLA LOS N/A Digital Radiography Impressions 03/07/2024 2:40 PM ACCESS REGISTRAR Heart size is normal. Marked hyperinflation of [...] without acute disease. Narrative 03/07/2024 2:40 PM ACCESS REGISTRAR EXAM: DX CHEST AP OR PA AND [...] deformity. Chest otherwise negative without acute disease. Brianna Doe P.A.-C. IMG DIAGNOSTIC IMAG ING PROCEDURES Final Result * (ABNORMAL) Morphology Evaluation (03/07/2024 2:05 PM ACCESS REGISTRAR) [facility] RBC Morphology Normal 03/07/2024 2:35 PM ACCESS REGISTRAR [facility] PLT Morphology Normal 03/07/2024 2:35 PM ACCESS REGISTRAR [facility] PLT Estimate Decreased( A) Adequate 03/07/2024 2:35 PM ACCESS REGISTRAR [facility] Blood 03/07/2024 2:05 PM ACCESS REGISTRAR 03/07/2024 2:07 PM ACCESS REGISTRAR Brianna Doe P.A.-C. LAB BLOOD ADD-ON Fi nal Result [facility] [address] [place] [phone], [facility] in [address] [address] * D-Dimer (03/07/2024 2:05 PM ACCESS REGISTRAR) D-Dimer, P 398 <=500 ng/mL FEU 03/07/2024 2:22 PM ACCESS REGISTRAR [facility] Comment: ----ADDITIONAL INFORMATION---- D-dimer values less than or equal to 500 ng/mL fibrinogen equivalent units (FEU) may be used in conjunction with clinical pre-test probability to exclude deep vein thrombosis (DVT) and/or pulmonary embolism (PE). Blood (Blood, Venous) 03/07/2024 2:05 PM ACCESS REGISTRAR 03/07/2024 2:07 PM ACCESS REGISTRAR us Brianna Doe P.A.-C. LAB BLOOD ADD-ON Fi nal Result [facility] [address] [place] [phone], [facility] [place] [address] * (ABNORMAL) CBC with Differential, Blood (03/07/2024 2:05 PM ACCESS REGISTRAR) Hemoglobin 13.0 11.6 - 15.0 g/dL 03/07/2024 2:15 PM ACCESS REGISTRAR [facility] Hematocrit 37.5 35.5 - 44.9 % 03/07/2024 2:15 PM ACCESS REGISTRAR [facility] Erythrocytes 3.78(L) 3.92 - 5.13 x10(12)/L 03/07/2024 2:15 PM ACCESS REGISTRAR [facility] MCV 99.2(H) 78.2 - 97.9 fL 03/07/2024 2:15 PM ACCESS REGISTRAR [facility] RBC Distrib Width 12.7 12.2 - 16.1 % 03/07/2024 2:15 PM ACCESS REGISTRAR [facility] Platelet Count 78(L) 157 - 371 x10(9)/L 03/07/2024 2:15 PM ACCESS REGISTRAR [facility] Leukocytes 3.2(L) 3.4 - 9.6 x10(9)/L 03/07/2024 2:15 PM ACCESS REGISTRAR [facility] Neutrophils 1.24(L) 1.56 - 6.45 x10(9)/L 03/07/2024 2:15 PM ACCESS REGISTRAR [facility] Lymphocytes 1.72 0.95 - 3.07 x10(9)/L 03/07/2024 2:15 PM ACCESS REGISTRAR [facility] Monocytes 0.21(L) 0.26 - 0.81 x10(9)/L 03/07/2024 2:15 PM ACCESS REGISTRAR [facility] Eosinophils <0.04 0.03 - 0.48 x10(9)/L 03/07/2024 2:15 PM ACCESS REGISTRAR [facility] Basophils <0.04 0.01 - 0.08 x10(9)/L 03/07/2024 2:15 PM ACCESS REGISTRAR [facility] Blood (Blood, Venous) 03/07/2024 2:05 PM ACCESS REGISTRAR 03/07/2024 2:07 PM ACCESS REGISTRAR us Brianna Doe P.A.-C. LAB BLOOD ADD-ON Fi nal Result [facility] [address] [place] [phone], [facility] [address] * (ABNORMAL) Comprehensive Metabolic Panel (03/07/2024 2:05 PM ACCESS REGISTRAR) Potassium, P 4.5 3.6 - 5.2 mmol/L 03/07/2024 2:25 PM ACCESS REGISTRAR [facility] Sodium, P 132(L) 135 - 145 mmol/L 03/07/2024 2:25 PM ACCESS REGISTRAR [facility] Chloride, P 90(L) 98 - 107 mmol/L 03/07/2024 2:25 PM ACCESS REGISTRAR [facility] Bicarbonate, P 36(H) 22 - 29 mmol/L 03/07/2024 2:25 PM ACCESS REGISTRAR [facility] Anion Gap, P 6(L) 7 - 15 03/07/2024 2:25 PM ACCESS REGISTRAR [facility] BUN (Blood Urea Nitrogen), P 15 6 - 21 mg/dL 03/07/2024 2:25 PM ACCESS REGISTRAR [facility] Creatinine 1.09(H) 0.59 - 1.04 mg/dL 03/07/2024 2:25 PM ACCESS REGISTRAR [facility] Estimated GFR (eGFR) 63 >=60 mL/min/BS A 03/07/2024 2:25 PM ACCESS REGISTRAR [facility] Comment: Estimated GFR calculated using the 2020 CKD_EPI creatinine equation. Calcium, Total, P 9.4 8.6 - 10.0 mg/dL 03/07/2024 2:25 PM ACCESS REGISTRAR [facility] Glucose, P 91 70 - 140 mg/dL 03/07/2024 2:25 PM ACCESS REGISTRAR [facility] Protein, Total, P 6.0(L) 6.3 - 7.9 g/dL 03/07/2024 2:25 PM ACCESS REGISTRAR [facility] Albumin, P 3.9 3.5 - 5.0 g/dL 03/07/2024 2:25 PM ACCESS REGISTRAR [facility] Aspartate Aminotransferase (AST), P 22 8 - 43 U/L 03/07/2024 2:25 PM ACCESS REGISTRAR [facility] Alkaline Phosphatase, P 58 35 - 104 U/L 03/07/2024 2:25 PM ACCESS REGISTRAR [facility] Alanine Aminotransferase (ALT), P 14 7 - 45 U/L 03/07/2024 2:25 PM ACCESS REGISTRAR [facility] Bilirubin, Total, P 0.5 0.0 - 1.2 mg/dL 03/07/2024 2:25 PM ACCESS REGISTRAR [facility] Blood (Blood, Venous) 03/07/2024 2:05 PM ACCESS REGISTRAR 03/07/2024 2:07 PM ACCESS REGISTRAR us Brianna Doe P.A.-C. LAB BLOOD ADD-ON Fi nal Result [facility] [address] [place] [phone], [facility] in [place] [address] [place] [phone] from Last 3 Months
--- OUTSIDE RECORDS SUMMARY | 2024-03-13 14:49 | XMS_ITS | Encounter Summary ---
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 Encounter Details Date Type Department Care Team ([facility] Contact Info) Description 03/07/2024 3:12 PM COMMERCIAL ROOFER - 03/07/2024 5:36 PM COMMERCIAL ROOFER Emergency [place] [facility] [address] [place] [address] Brianna Doe, P.A.-C. [address] [place] [phone] Pneumonia (Primary Dx); Loss Weight Abnormal; Thrombocytopenia (HCC); Leukocytopenia Discharge Disposition: Home or Self Care Social History Tobacco Use Types Packs/Day Years Used Date Smoking Tobacco: Never Assessed Nutrition Answer Date Recorded Nutrition: EVOO Fat Source Unknown 05/11 Nutrition: Servings of Fruits/Vegetables per Day Not on file 05/11/2020 Dental Answer Date Recorded Dental: Regular Dentist Unknown 05/12/19 21 Comments No Sex and Gender Information Value Date Recorded Sex Assigned at Not on file Legal Sex Female 10:55 AM COMMERCIAL ROOFER Gender Identity Not on file Sexual Orientation Not on file documented as of this encounter Last Filed Vital Signs Vital Sign Reading Time Taken Comments Blood Pressure 120/88 03/07/2024 5:15 PM COMMERCIAL ROOFER Pulse 45 03/07/2024 5:00 PM COMMERCIAL ROOFER Temperature 36.9 C (98.4 F) 03/07/2024 3:10 PM COMMERCIAL ROOFER Respiratory Rate 11 03/07/2024 5:15 PM COMMERCIAL ROOFER Oxygen Saturation 98% 03/07/2024 5:00 PM COMMERCIAL ROOFER Inhaled Oxygen Concentration - - Weight 49.7 kg (109 lb 9.1 oz) 03/07/2024 3:10 P M COMMERCIAL ROOFER Height - - Body Mass Index - - documented in this encounter Discharge Instructions * Discharge Instructions* Brianna Doe P.A.-C. - 03/07/2024 5:30 PM COMMERCIAL ROOFER You were seen and evaluated today on an emergent basis. You were seen for abnormal weight loss, balance and coordination issues that has been ongoing for quite some time. You also been having some shortness of breath. Because of the recent diagnosis of the melanoma, we did obtain CT imaging of yourhead, chest abdomen and pelvis. This is not show any acute metastatic disease as we discussed, but does show you may have pneumonia. We will treat you with antibiotics that are sent to [facility] pharmacy. You also have some abnormalities and your lab work that it would like closely re-evaluated and followed with the your primary care provider. Return to the emergency room as needed and as discussed. ERCIAL ROOFER * Attachments The following attachments cannot be sent through Care Everywhere. * Community-Acquired Pneumonia Adult (Gambian) documented in this encounter Medications at Time of Discharge amoxicillin-pot clavulanate (Augmentin) 875-125 mg per tabletIndications :Pneumonia Take 1 tablet by mouth 2 (two) times a day for 5 days. 10 tablet 03/07/2024 03/12/2024 azithromycin (Zithromax) 250 mg tabletIndications :Pneumonia Take 2 tablets (500 mg) on day 1 and then 1 tablet (250 mg) on days 2-5. 6 tablet 03/07/2024 03/12/2024 documented as of this encounter ED Notes * Brianna Doe P.A.-C. - 03/07/2024 1:47 PM CST HISTORY AND PHYSICAL: History of present illness: Esther Pate is a 48-year-old female who presents to the emergency room today with concern of various complaints. Patient states that in general, over the last several months she has had a decreased appetite and has lost a lot of weight. She states that a few weeks ago, she had melanoma removed from her left leg, in his due to have a PET scan at the beginning of the year. She states that she does not have any known cancer outside of this removed lesion. She does state that she has had some balance and coordination issues were suddenly she will be walking off to the side and has generalized fatigue. She states in the last month, she has had some shortness of breath where she feels like she can not take a deep breath in, but has not had any acute changes of the symptoms in the last week. Denies any falls or injuries. Patient denies fever, chills, chest pain, shortness of breath, or cough. Denies headache, neck stiff ness, change in vision, syncope, or near syncope. Denies nausea, vomiting, abdominal pain, diarrhea, constipation, or dysuria. Has not noted any blood in urine or stool. Patient has been eating and drinking appropriately. Review of systems: As per history of present illness and below otherwise all systems reviewed and negative. Past medical history: As per history of present illness and as reviewed below otherwise noncontributory. Surgical history: As per history of present illness and as reviewed below otherwise noncontributory. Social history: See social history for further information Family history: As per history of present illness and as reviewed below otherwise noncontributory. Physical exam: General: Patient is alert, oriented, and in no acute distress. Patient sitting comfortably on exam table. Chronically ill-appearing. Blood pressure 120/88, pulse (!) 45, temperature 36.9 ??C, temperature source Temporal, resp. rate 11, weight 49.7 kg, SpO2 98%. There is no height or weight on file to calculate BMI. HEENT: Atraumatic, normocephalic, pupils equal and reactive bilaterally, negative for conjunctival pallor or scleral icterus, mucous membranes moist, throat clear, neck supple, nontender, trachea midline. No drooling or trismus noted. No meningeal signs. No hot potato voice noted. Lungs: Clear to auscultation, breath sounds equal bilaterally, chest nontender. Heart: S1S2, regular rate and rhythm without overt murmur Abdomen: Soft, nondistended, nontender. Negative for masses or hepatosplenomegaly. Negative for costovertebral tenderness. Pelvis: Stable nontender. Genitourinary: Deferred. Rectal: Deferred. Skin: There is an area of removal of the left thigh and into the left groin with an underlying seroma at the healed incision sites. Otherwise, Intact, warm, dry. No lesions or rashes noted. Musculoskeletal: Atraumatic, negative for cords or calf pain. Neurovascular unremarkable. Neuro: Awake, alert, oriented. Cranial nerves II through XII unremarkable. Cerebellum unremarkable.Motor and sensory unremarkable throughout. Exam nonfocal. Medical Decision Making: Upon arrival to the ED, patient is vitally stable in his sitting comfortably on exam table. She is able to ambulate without any balance or coordination issues but did recently have melanoma removed from her left leg, with chronic balance coordination issues, generalized weakness, and unexplained weight loss. I am concerned of the possibility of metastasis. She also has shortness of breath over the last 1 month. At this time, we will obtain CT imaging to assess for metastasis to the brain as well as imaging of her chest and lab work. Patient does have abnormal lab work today showing thrombocytopenia, leukopenia, and she is not on chemotherapy. Her bicarb is also elevated at 36, however her venous blood gas pH is appropriate. She does appear chronically ill/malnourished, and CT imaging does not show any evidence of metastasis but does show concern of possible infectious/infiltrates in her lungs. We will cover patient for pneumonia and have her follow up closely with the primary care. She does not see anyone here at [place] so Iinstructed her to call her primary care on Sunday for a close follow up visit. She is agreeable. Strict return precautions extensively discussed with patient. Discussed the importance for close follow up with the primary care. ED Course as of 03/07/241803Mar 07, [address] Head without IV Contrast IMPRESSION: 1. No acute intracranial disease. 2. No definite brain or intracranial metastases. MRI brain is more sensitive for exclusion of intracranial metastatic disease if this is a consideration. 3. Chronic intracranial findings. Final Diagnoses: as of 03/07/24 180 Pneumonia Loss Weight Abnormal Thrombocytopenia (HCC) Leukocytopenia Definitive disposition and diagnosis as appropriate pending reevaluation and review of above. Brianna Doe P.A.-C. 03/07/241806 ERCIAL ROOFER documented in this encounter Plan of Treatment Not on file documented as of this encounter Procedures Procedure Name Priority Date/Time Associated Diagnosis Comments VBG (VENOUS BLOOD GAS), POCT, B STAT 03/07/2024 4:[address] ABDOMEN PELVIS WITH IV CONTRAST RAD - Semiurgent (Fast; most ED patients; some inpatients) 03/07/2024 4:[address] CHEST WITH IV CONTRAST RAD - Semiurgent (Fast; most ED patients; some inpatients) 03/07/2024 4:[address] HEAD WITHOUT IV CONTRAST RAD - Semiurgent (Fast; most ED patients; some inpatients) 03/07/2024 3:56 PM COMMERCIAL ROOFER ECG STAT 03/07/2024 3:06 PM COMMERCIAL ROOFER DX CHEST AP OR PA AND LATERAL 2 VIEWS RAD - Semiurgent (Fast; most ED patients; some inpatients) 03/07/2024 2:34 PM COMMERCIAL ROOFER MORPHOLOGY EVALUATION STAT 03/07/2024 2:05 PM COMMERCIAL ROOFER D-DIMER, P STAT 03/07/2024 2:05 PM COMMERCIAL ROOFER CBC WITH DIFFERENTIAL, B STAT 03/07/2024 2:05 PM COMMERCIAL ROOFER COMPREHENSIVE METABOLIC PANEL, S/P STAT 03/07/2024 2:05 PM COMMERCIAL ROOFER documented in this encounter Results * (ABNORMAL) Blood Gas, Venous, POCT, Blood (03/07/2024 4:47 PM COMMERCIAL ROOFER) pH, Venous, POCT, B 7.43 7.32 - 7.43 03/07/2024 4:58 PM COMMERCIAL ROOFER [facility] pCO2, Venous, POCT, B 55(H) 41 - 51 mm Hg 03/07/2024 4:58 PM COMMERCIAL ROOFER [facility] pO2, Venous, POCT, B 19 Not applicable mm Hg 03/07/2024 4:58 PM COMMERCIAL ROOFER [facility] HCO3, Venous, POCT, B 36 Not applicable mmol/L 03/07/2024 4:58 PM COMMERCIAL ROOFER [facility] Base Excess, Venous, POCT, B 12 Not applicable mmol/L 03/07/2024 4:58 PM COMMERCIAL ROOFER [facility] O2 Saturation, Venous, POCT, B 30 Not applicable % 03/07/2024 4:58 PM COMMERCIAL ROOFER [facility] Sample Type, Blood Gas, POCT ALEJANDRO 03/07/2024 4:58 PM COMMERCIAL ROOFER [facility] Blood (Blood, Venous) 03/07/2024 4:47 PM COMMERCIAL ROOFER 03/07/2024 4:48 PM COMMERCIAL ROOFER us Brianna Doe P.A.-C. LAB POCT ORDERABLES - DEVICE Final Result [facility] [address] [place] [id number], [facility] [place] [address] [place] [address] * CT Abdomen Pelvis with IV Contrast (03/07/2024 4:28 PM COMMERCIAL ROOFER) Anatomical Region Laterality Modality Abdomen, Pelvis, Abdominal R ST LOS, Abdominal ARZ LOS, Abdominal FLA LOS N/A Computed Tomography 03/07/2024 4:13 PM COMMERCIAL ROOFER Impressions 03/07/2024 4:56 PM COMMERCIAL ROOFER 1. No acute disease in the chest, [...] mild periportal edema. Narrative 03/07/2024 4:56 PM COMMERCIAL ROOFER EXAM: CT CHEST WITH IV CONTRAST, CT [...] Chest with IV Contrast (03/07/2024 4:28 PM COMMERCIAL ROOFER) Anatomical Region Laterality Modality Chest, Thoracic RST LOS, Tho racic ARZ LOS, Thoracic ARZ LOS, Thoracic FLA LOS N/A Computed Tomography 03/07/2024 4:27 PM COMMERCIAL ROOFER Impressions 03/07/2024 4:56 PM COMMERCIAL ROOFER 1. No acute disease in the chest, [...] mild periportal edema. Narrative 03/07/2024 4:56 PM COMMERCIAL ROOFER EXAM: CT CHEST WITH IV CONTRAST, CT [...] right iliac bone on image 11 of [id number]. Few tiny sclerotic lesions within the skeleton [...] Head without IV Contrast (03/07/2024 3:56 PM COMMERCIAL ROOFER) Anatomical Region Laterality Modality Head, Neuroradiology RST LOS , Neuroradiology ARZ LOS, Neuroradiology [facility] N/A Computed Tomography 03/07/2024 4:00 PM COMMERCIAL ROOFER Impressions 03/07/2024 4:06 PM COMMERCIAL ROOFER 1. No acute intracranial disease. 2. No definite brain or intracranial metastases. MRI brain is more sensitive for exclusion of intracranial metastatic disease if this is a consideration. 3. Chronic intracranial findings. Narrative 03/07/2024 4:06 PM COMMERCIAL ROOFER EXAM: CT HEAD WITHOUT IV CONTRAST COMPARISON: [...] * ECG 12 Lead (03/07/2024 3:06 PM COMMERCIAL ROOFER) Ventricular Rate ECG/Min 48 BPM MUSE GA Interval 160 ms MUSE QRSD Interval 84 ms MUSE QT Interval 448 ms MUSE QTC Interval 400 ms MUSE P [place] 82 degrees MUSE R [place] 72 degrees MUSE T Wave [place] 79 degrees MUSE 03/07/2024 3:06 PM COMMERCIAL ROOFER 03/07/2024 3:33 PM COMMERCIAL ROOFER Impressions MUSE - 03/07/2024 3:08 PM COMMERCIAL ROOFER Marked sinus bradycardia Low anterior forces Nonspecific ST abnormality When compared with ECG of 14-Jul-1997 08:31, Premature atrial complexes are no longer present Reviewed by MADELEINE Ruggiero Narrative Procedure Note Philip Bazan M.D. - 03/07/2024 IMPRESSION: Marked sinus bradycardia Low anterior forces Nonspecific ST abnormality When compared with ECG of 14-Jul-1997 08:31, Premature atrial complexes are no longer present Reviewed by MADELEINE Ruggiero us Brianna Doe P.A.-C. ECG ORDERABLES Giles chi Result - Final MUSE NA * DX Chest AP or PA and Lateral 2 Views (03/07/2024 2:34 PM COMMERCIAL ROOFER) Anatomical Region Laterality Modality Chest, Thoracic RST LOS, Tho racic ARZ LOS, Thoracic FLA LOS N/A Digital Radiography Impressions 03/07/2024 2:40 PM COMMERCIAL ROOFER Heart size is normal. Marked hyperinflation of [...] without acute disease. Narrative 03/07/2024 2:40 PM COMMERCIAL ROOFER EXAM: DX CHEST AP OR PA AND [...] * (ABNORMAL) Morphology Evaluation (03/07/2024 2:05 PM COMMERCIAL ROOFER) Pathologist [facility] RBC Morphology Normal 03/07/2024 2:35 PM COMMERCIAL ROOFER [facility] PLT Morphology Normal 03/07/2024 2:35 PM COMMERCIAL ROOFER [facility] PLT Estimate Decreased( A) Adequate 03/07/2024 2:35 PM COMMERCIAL ROOFER [facility] Blood 03/07/2024 2:05 PM COMMERCIAL ROOFER 03/07/2024 2:07 PM COMMERCIAL ROOFER Result [facility] Brianna Doe P.A.-C. LAB BLOOD ADD-ON Fi nal Result Performing Organization Address [facility] Co de Phone Number [facility] [address] [place] [address], [facility] [place] [address] * D-Dimer (03/07/2024 2:05 PM COMMERCIAL ROOFER) Pathologist [facility] D-Dimer, P 398 <=500 ng/mL FEU 03/07/2024 2:22 PM COMMERCIAL ROOFER [facility] Comment: ----ADDITIONAL INFORMATION---- D-dimer values less than or equal to 500 ng/mL fibrinogen equivalent units (FEU) may be used in conjunction with clinical pre-test probability to exclude deep vein thrombosis (DVT) and/or pulmonary embolism (PE). Blood (Blood, Venous) 03/07/2024 2:05 PM COMMERCIAL ROOFER 03/07/2024 2:07 PM COMMERCIAL ROOFER Result [facility] Brianna Doe P.A.-C. LAB BLOOD ADD-ON Fi nal Result Performing Organization Address City/[facility]/ZIP Co de Phone Number [facility] [address] [facility] [place], [place] [address], [facility] [place] [address] [place], [place] [address] * (ABNORMAL) Comprehensive Metabolic Panel (03/07/2024 2:05 PM COMMERCIAL ROOFER) Potassium, P 4.5 3.6 - 5.2 mmol/L 03/07/2024 2:25 PM COMMERCIAL ROOFER [facility] Sodium, P 132(L) 135 - 145 mmol/L 03/07/2024 2:25 PM COMMERCIAL ROOFER [facility] Chloride, P 90(L) 98 - 107 mmol/L 03/07/2024 2:25 PM COMMERCIAL ROOFER [facility] Bicarbonate, P 36(H) 22 - 29 mmol/L 03/07/2024 2:25 PM COMMERCIAL ROOFER [facility] Anion Gap, P 6(L) 7 - 15 03/07/2024 2:25 PM COMMERCIAL ROOFER [facility] BUN (Blood Urea Nitrogen), P 15 6 - 21 mg/dL 03/07/2024 2:25 PM COMMERCIAL ROOFER [facility] Creatinine 1.09(H) 0.59 - 1.04 mg/dL 03/07/2024 2:25 PM COMMERCIAL ROOFER [facility] Estimated GFR (eGFR) 63 >=60 mL/min/BS A 03/07/2024 2:25 PM COMMERCIAL ROOFER [facility] Comment: Estimated GFR calculated using the 2020 CKD_EPI creatinine equation. Calcium, Total, P 9.4 8.6 - 10.0 mg/dL 03/07/2024 2:25 PM COMMERCIAL ROOFER [facility] Glucose, P 91 70 - 140 mg/dL 03/07/2024 2:25 PM COMMERCIAL ROOFER [facility] Protein, Total, P 6.0(L) 6.3 - 7.9 g/dL 03/07/2024 2:25 PM COMMERCIAL ROOFER [facility] Albumin, P 3.9 3.5 - 5.0 g/dL 03/07/2024 2:25 PM COMMERCIAL ROOFER [facility] Aspartate Aminotransferase (AST), P 22 8 - 43 U/L 03/07/2024 2:25 PM COMMERCIAL ROOFER [facility] Alkaline Phosphatase, P 58 35 - 104 U/L 03/07/2024 2:25 PM COMMERCIAL ROOFER [facility] Alanine Aminotransferase (ALT), P 14 7 - 45 U/L 03/07/2024 2:25 PM COMMERCIAL ROOFER [facility] Bilirubin, Total, P 0.5 0.0 - 1.2 mg/dL 03/07/2024 2:25 PM COMMERCIAL ROOFER [facility] Blood (Blood, Venous) 03/07/2024 2:05 PM COMMERCIAL ROOFER 03/07/2024 2:07 PM COMMERCIAL ROOFER us Brianna Doe P.A.-C. LAB BLOOD ADD-ON Fi nal Result [facility] [address] [place] [phone], [facility] in [address] [address] * (ABNORMAL) CBC with Differential, Blood (03/07/2024 2:05 PM COMMERCIAL ROOFER) Hemoglobin 13.0 11.6 - 15.0 g/dL 03/07/2024 2:15 PM COMMERCIAL ROOFER [facility] Hematocrit 37.5 35.5 - 44.9 % 03/07/2024 2:15 PM COMMERCIAL ROOFER [facility] Erythrocytes 3.78(L) 3.92 - 5.13 x10(12)/L 03/07/2024 2:15 PM COMMERCIAL ROOFER [facility] MCV 99.2(H) 78.2 - 97.9 fL 03/07/2024 2:15 PM COMMERCIAL ROOFER [facility] RBC Distrib Width 12.7 12.2 - 16.1 % 03/07/2024 2:15 PM COMMERCIAL ROOFER [facility] Platelet Count 78(L) 157 - 371 x10(9)/L 03/07/2024 2:15 PM COMMERCIAL ROOFER [facility] Leukocytes 3.2(L) 3.4 - 9.6 x10(9)/L 03/07/2024 2:15 PM COMMERCIAL ROOFER [facility] Neutrophils 1.24(L) 1.56 - 6.45 x10(9)/L 03/07/2024 2:15 PM COMMERCIAL ROOFER [facility] Lymphocytes 1.72 0.95 - 3.07 x10(9)/L 03/07/2024 2:15 PM COMMERCIAL ROOFER [facility] Monocytes 0.21(L) 0.26 - 0.81 x10(9)/L 03/07/2024 2:15 PM COMMERCIAL ROOFER [facility] Eosinophils <0.04 0.03 - 0.48 x10(9)/L 03/07/2024 2:15 PM COMMERCIAL ROOFER [facility] Basophils <0.04 0.01 - 0.08 x10(9)/L 03/07/2024 2:15 PM COMMERCIAL ROOFER [facility] Blood (Blood, Venous) 03/07/2024 2:05 PM COMMERCIAL ROOFER 03/07/2024 2:07 PM COMMERCIAL ROOFER Brianna Doe P.A.-C. LAB BLOOD ADD-ON Fi nal Result [facility] [address] [place] [id number], [facility] in [address] [address] documented in this encounter Visit Diagnoses Diagnosis Pneumonia- Primary Loss Weight Abnormal Thrombocytopenia (HCC) Leukocytopenia documented in this encounter Administered Medications Inactive Administered Medications - up to 3 most recent administrations Medication Order MAR Action Action Date Dose Rate Site iohexoL 300 mg iodine/mL solution 1-200 mL (Omnipaque) 1-200 mL, intravenous, Once in imaging, contrast, Starting on Sun03/07/24 at 1602, For 1 dose Given 03/07/2024 4:09 PM COMMERCIAL ROOFER 100 mL NaCl 0.9 % bolus 1,000 mL 1,000 mL, intravenous, at 1,000 mL/hr, Administer over 1 Hours, Once, On Sun03/07/24 at 1630, For 1 dose New Bag 03/07/2024 4:42 PM COMMERCIAL ROOFER 1,000 mL 1000 mL/hr sodium chloride 0.9 % flush 100 mL 100 mL, intravenous, Once in imaging, line care, Starting on Sun03/07/24 at 1602, For 1 dose Given 03/07/2024 4:09 PM COMMERCIAL ROOFER 100 mL sodium chloride 0.9 % injection 10 mL 10 mL, intravenous, Once in imaging, line care, Starting on Sun03/07/24 at 1602, For 1 dose Given 03/07/2024 4:06 PM COMMERCIAL ROOFER 10 mL documented in this encounter Active and Recently Administered Medications Times are shown in COMMERCIAL ROOFER. Scheduled Medication Order 03/05/2024 03/06/2024 03/07/2024 NaCl 0.9 % bolus 1,000 mL (COMPLETED) 1,000 mL, intravenous, at 1,000 mL/hr, Administer over 1 Hours, Once, On Sun03/07/24 at 1630, For 1 dose 1642 (New Bag - Prov ider: Bertha Madison R.N.)[id number] (Stopped - Provider: Hadley Abbasi R.N.) PRN Medication Order 03/05/2024 03/06/2024 03/07/2024 iohexoL 300 mg iodine/mL solution 1-200 mL (Omnipaque) (COMPLETED) 1-200 mL, intravenous, Once in imaging, contrast, Starting on Sun03/07/24 at 1602, For 1 dose 1609 (Given - Provid er: Carlo Goldman(R)(CT), R.T.(R)) sodium chloride 0.9 % flush 100 mL (COMPLETED) 100 mL, intravenous, Once in imaging, line care, Starting on Sun03/07/24 at 1602, For 1 dose 1609 (Given - Provid er: Carlo Goldman(R)(CT), R.T.(R)) sodium chloride 0.9 % injection 10 mL (COMPLETED) 10 mL, intravenous, Once in imaging, line care, Starting on Sun03/07/24 at 1602, For 1 dose 1606 (Given - Provid er: Carlo Goldman(R)(CT), R.T.(R)) documented in this encounter
--- NOTE | 2024-03-20 14:30 | CRLHL7_ITS ---
For Patients: As a result of the Century Cures Act, medical imaging exams and procedure reports are released immediately into your electronic medical record. You may view this report before your referring provider. If you have questions, please contact your health care provider. INDICATION: Metastatic melanoma left lower limb. TECHNIQUE: Brain MRI with and without contrast. 15 cc gadolinium based contrast administered. COMPARISON: None. FINDINGS: No evidence of acute ischemia. No evidence of acute or chronic intracranial blood products. No mass or pathologic intracranial enhancement. Scattered FLAIR hyperintensities within the supratentorial white matter, typical for chronic microvascular ischemic change. Moderate generalized parenchymal volume loss. No hydrocephalus or extra-axial collections. The pituitary gland, parasellar structures and optic chiasm are normal. Posterior fossa is normal. All the major intracranial vascular structures demonstrate normal flow-related signal. The orbital contents are normal. No calvarial or skull base marrow signal abnormality. No obstructive sinus disease. No extracranial soft tissue findings. IMPRESSION: 1. No acute infarction or other acute intracranial pathology. 2. No evidence of intracranial metastatic disease. 3. Minimal chronic microvascular ischemic changes and moderate generalized parenchymal volume loss. Dictated by Mekhi Carranza MD @ 03/20/2024 4:18:47 PM (Electronically Signed)
== END 2024-03-20 13:51 | disposition home or self-care (01) ==
LOC: MRI 13:50
PROVIDERS: PCP Family Medicine; Visit Provider Surgery
DX: C43.72 Malignant melanoma of left lower limb, including hip (principal); I67.82 Cerebral ischemia
CPT/HCPCS: 70553; A9575

== ENCOUNTER 2024-03-31 13:01 | Outpatient (CLI) | payer OTHER, SELFPAY ==
--- NOTE | 2024-03-31 14:00 | CRLHL7_ITS ---
For Patients: As a result of the Century Cures Act, medical imaging exams and procedure reports are released immediately into your electronic medical record. You may view this report before your referring provider. If you have questions, please contact your health care provider. INDICATION: Melanoma staging. TECHNIQUE: CT chest, abdomen and pelvis acquired 57 cc Isovue 370 IV contrast COMPARISON: None. FINDINGS: CHEST: Cardiovascular structures: Heart size is normal. Thoracic aorta and main pulmonary artery are normal in caliber. Mediastinum and dewey: No mass or adenopathy. Lungs and pleura: Patchy tree-in-bud opacities in the right middle lobe and lingula with minimal focal bronchiectasis, concerning for infectious/inflammatory infiltrate versus mac infection. Calcified granuloma in the left lower lobe. Patchy biapical pleural thickening/scarring. There is no suspicious lung nodule or mass. No pleural effusion or pneumothorax. Bones: No suspicious bone lesions. ABDOMEN AND PELVIS: Liver: Liver is normal in size and attenuation. No concerning focal mass. Gallbladder and bile ducts: Gallbladder is incompletely distended. No evidence of inflammation or biliary ductal dilatation. Pancreas: Unremarkable. Spleen: Unremarkable. Adrenal glands: Unremarkable. Kidneys: Unremarkable. GI tract: No bowel obstruction. Vascular structures: Abdominal aorta is of normal caliber with minimal atherosclerotic disease. Lymph nodes: Unremarkable. Peritoneum/Retroperitoneum/Abdominal Wall: No free air or significant free fluid. Pelvic Organs: Uterus is normal in size and attenuation. Bones and superficial soft tissues: No suspicious bone lesions. Unremarkable for age. IMPRESSION: 1. Patchy tree-in-bud nodular opacities, predominantly in the right middle lobe and lingula with minimal focal bronchiectasis, could relate to MAC infection. 2. No suspicious lung nodule or mass to suspect pulmonary metastasis. 3. No solid organ metastasis in the abdomen and pelvis. Please note that all CT scans at this facility use dose modulation, iterative reconstruction, and/or weight-based dosing when appropriate to reduce radiation dose to as low as reasonably achievable. Dictated by Latonia Riggs MD @ 04/01/2024 8:24:58 AM (Electronically Signed)
== END 2024-03-31 13:02 | disposition home or self-care (01) ==
LOC: CT 13:01
PROVIDERS: PCP Family Medicine; Visit Provider Surgery
DX: C43.9 Malignant melanoma of skin, unspecified (principal)
CPT/HCPCS: 71260; 74177; Q9967

== ENCOUNTER 2024-04-02 12:41 | Outpatient (CLI) | payer OTHER, SELFPAY ==
[2024-04-06 17:48] LABS: Urine Osmolality 269 mOsm/kg (50-800)
--- NOTE | 2024-04-07 11:38 | ONC.NURNOTE ---
Natalie w/Dr James phoned PET that was ordered by the surgeon was not approved by insurance and delayed from 03/13 to 03/27/24 Dr James's office was informed that insurance required a Peer to Peer from PCP for PET- still not approved for 03/[address] instead However per Natalie if a PET is to be approved, it will need to be ordered by the oncologist patient has an oncology appt on 04/10/24-
== END 2024-04-02 12:42 | disposition home or self-care (01) ==
PROVIDERS: PCP Family Medicine; Visit Provider Family Medicine
DX: E87.1 Hypo-osmolality and hyponatremia (principal); R41.0 Disorientation, unspecified; F31.9 Bipolar disorder, unspecified
CPT/HCPCS: 80048; 80164; 80165; 80306; 83930; 83935; 84300

== ENCOUNTER 2024-04-10 14:00 | Outpatient (RCR) | payer OTHER, SELFPAY ==
[2024-03-20 14:26] LABS: Hematocrit 41.6 % (33.0-51.0); Hemoglobin* 14.4 gm/dL (12.0-16.0); Immature Granulocytes Abs Auto 0.00 K/uL (0.00-0.30); Immature Granulocytes Pct Auto 0.0 %; Mean Corpuscular HGB Conc 35 gm/dL (32-36); Mean Corpuscular Hemoglobin 34 pg (26-34); Mean Corpuscular Volume 98 fL (80-100); RDW Coefficient of Variation % 12.7 % (11.5-15.5); Red Blood Count 4.24 m/uL (4.00-5.20); White Blood Count* 4.27 K/uL (4.50-11.00)
[2024-03-20 14:37] LABS: Lymphocytes Absolute Auto 1.40 K/uL (0.90-2.90); Slide Review Reflex No
[2024-03-20 14:42] LABS: Albumin* 3.9 g/dL (3.3-5.0); Chloride* 85 mmol/L (96-114)
[2024-03-20 14:43] LABS: Potassium* 4.2 mmol/L (3.6-5.1); Sodium* 126 mmol/L (135-149)
[2024-03-20 14:45] LABS: Anion Gap 4 mEq/L (7-15); Aspartate Amino Transferase* 28 U/L (12-35); Bilirubin Total* 0.5 mg/dL (0.1-1.5); Carbon Dioxide* 37 mmol/L (20-32); Creatinine* 1.0 mg/dL (0.5-1.5); Estimated Glomerular Filt Rate 69 ml/min
[2024-03-20 14:46] LABS: Alanine Aminotransferase* 14 U/L (4-35); Alkaline Phosphatase* 58 U/L (40-150); Blood Urea Nitrogen* 20 mg/dL (5-24); Calcium* 9.5 mg/dL (8.4-10.6); Glucose* 83 mg/dL (60-115); Total Protein* 6.5 g/dL (6.0-8.3)
--- NOTE | 2024-04-14 13:08 | ONC.NURNOTE ---
Workload note sent to Dr James's office and Dr Scott Santana did not show up for her appt with Dr Arellano on 04/10/24
== END 2024-09-16 23:59 | disposition home or self-care (01) ==
LOC: CCIC 14:00
PROVIDERS: PCP Family Medicine; Visit Provider Clinical Nurse Specialist
DX: C43.72 Malignant melanoma of left lower limb, including hip (principal)
CPT/HCPCS: 36415; 80053; 83615; 84443; 85025

== ENCOUNTER 2024-08-21 11:12 | Outpatient (CLI) | payer OTHER, SELFPAY | END 2024-08-21 11:13 | disposition home or self-care (01) | PROVIDERS: PCP Family Medicine; Visit Provider Family Medicine | DX: E87.1 Hypo-osmolality and hyponatremia (principal) | CPT/HCPCS: 80048; 84460 ==

== ENCOUNTER 2025-03-10 10:38 | Outpatient (CLI) | payer OTHER, SELFPAY | END 2025-03-10 10:39 | disposition home or self-care (01) | LOC: FBOREF 10:38 | PROVIDERS: PCP Family Medicine; Visit Provider Family Medicine | DX: F31.9 Bipolar disorder, unspecified (principal); T42.6X1A Poisoning by other antiepileptic and sedative-hypnotic drugs, accidental (unintentional), initial encounter; Z79.899 Other long term (current) drug therapy | CPT/HCPCS: 80048; 80164; 80165 ==